=== PATIENT | female | born 1955 | race Caucasian/White ===

== ENCOUNTER 2024-02-13 22:55 | Inpatient (IN) | payer MEDICARE, SELFPAY ==
[2024-02-13 14:27] VITALS: BP 124/88
--- NOTE | 2024-02-13 14:37 | ED.GENMED ---
History of Present Illness
General
Chief Complaint: Bowel Problem
Source: ambulance crew
Time Seen by Provider: 02/13/24 14:29
Travel History
Have you had any contact with someone who has COVID-19?: Unable to Answer
Do you have any symptoms of coronavirus? Fever > 100 degrees, chills, cough, shortness of breath, sore throat, loss of taste or smell, muscle aches, or headache?: Unable to Answer
History of Present Illness
History of Present Illness:
68-year-old female presenting to the ER, past medical history of dementia, for evaluation of reported increased lethargy over the last few days. Family noted some larger thicker bowel movements and thought patient should come to the emergency
department to be evaluated for possible infectious etiology. Patient is unable to provide any history secondary to her dementia. No family is present in the ER at time of arrival in my examination.
Past History
Past History
ED Past Medical History: Hypercholesterolemia, Hypothyroidism, Psychiatric (depression) and Other (lewy body dementia, overactive bladder)
ED Past Surgical History: None
Social History
Tobacco: Non-smoker
Alcohol: None
Drug: None
Personal:
Living: with family
Review of Systems
Review of Systems
All Other Systems: ROS reviewed and negative except as documented in HPI and ROS
Phy Exam
Physical Exam
Physical Exam:
GENERAL: Obtunded but will open eyes to name and withdrawal from pain but otherwise is noncommunicative
EYE: conjunctiva clear
NECK: Supple, no significant adenopathy.
ENT: o/p clr, mmm.
CARDIAC: Regular rate and rhythm
LUNGS: Clear breath sounds bilaterally, no acute respiratory distress, no wheezes/rales/rhonchi
Abdomen: Soft, does not grimace with palpation
NEUROLOGICAL: Unable to assess
SKIN: Warm and dry, skin intact.
MUSCULOSKELETAL: well perfused.
PSYCH: Unable to assess
Scores
Heart Failure Risk
Heart Failure Risk Score: Not Applicable
Heart Score for Chest Pain Patients
STEMI patient?: Not applicable
Withdrawal Assessment of Alcohol
Withdrawal Assessment Completed?: Not applicable
Course
Orders/Labs/Results
Orders:
Orders
02/13/24 14:32
Complete Blood Count/With Diff Urgent
Comprehensive Metabolic Panel Urgent
Lipase Urgent
02/13/24 15:20
CT Abd/pelvis W Iv Cont Urgent
Comment:
Reason For Exam: hx bowel obstruction, diarrhea, leukocytosis
02/13/24 15:47
COVID-19 Antigen Urgent
Source: Nasal Swab
Urinalysis Reflex To Culture Urgent
Date Specimen was Collected: 02/13/24
Time Specimen was Collected: 14:51
Urine Microscopic Reflex Cult Urgent
Urine Culture Urgent
KAIT Source: U
Specimen Description:
Date Specimen was Collected: 02/13/24
Time Specimen was Collected: 14:51
02/13/24 17:13
0.9% Sodium Chloride 1000 ml [Nss] 1,000 ml IV BOLUS
02/13/24 18:14
CR Chest Portable - 1 View Urgent
Comment:
Reason For Exam: hypoxia, lethargy
Reason Study Needs to be Portable: Unable to Transport
02/13/24 18:15
Blood Culture Q30M
KAIT Source: Blood/Venous
Specimen Description:
02/13/24 18:18
Azithromycin 500 mg/250 ml [Zithromax Infusion] 500 mg in 250 ml IV NOW
CefTRIAXone [Rocephin] 1,000 mg IV NOW STA
02/13/24 18:45
Blood Culture Q30M
KAIT Source: Blood/Venous
Specimen Description:
Abnormal Lab Results
02/13/24 02/13/24
14:32 15:47
WBC 15.0 H 10^3/uL
(4.8-10.8)
MCHC 31.3 L g/dL
(33.0-37.0)
RDW 16.1 H %
(11.5-14.5)
MPV 10.6 H fL
(7.4-10.4)
Abs Immat Gran (auto) 0.1 H 10^3/uL
(0-0.05)
Absolute Neuts (auto) 10.7 H 10^3/uL
(1.4-6.5)
Absolute Monos (auto) 1.0 H 10^3/uL
(0.1-0.6)
Creatinine 0.5 L mg/dL
(0.6-1.0)
AST 101 H U/L
(14-36)
ALT 98 H U/L
(0-35)
Urine Ketones Trace A
(Negative)
Leukocyte Esterase Rfl 1+ A
(Negative)
Urine WBC (Reflex) 16-20 A /HPF
(0-5)
Urine Bacteria (Reflex) Moderate A
(Negative)
02/13/24 14:32
02/13/24 14:32
Vital Signs
Initial and Last Documented VS:
Initial Vital Signs
Temp Pulse Resp BP Pulse Ox
98.2 F 86 16 124/88 98
02/13/24 14:27 02/13/24 14:27 02/13/24 14:27 02/13/24 14:27 02/13/24 14:27
Last Documented Vital Signs
Temp Pulse Resp BP Pulse Ox
98.2 F 86 16 124/88 98
02/13/24 14:27 02/13/24 14:27 02/13/24 14:27 02/13/24 14:27 02/13/24 14:27
MDM/Problems Addressed
Differential Diagnosis Includes:
Progressive dementia, urinary tract infection, pneumonia, other infectious etiology
MDM/Problems Addressed:
68-year-old female with past medical history dementia presenting the emergency department for reported change in mental status. Family is currently not present in the emergency department so history was very limited and only per EMS. At this time
it is unclear what patient's baseline is. She does not have any significant visits to this emergency department previously. In the meantime we will check labs and urine. Reassessment following. Will contact patient's family to get further
history.
*Radiology
Radiology exam reviewed: radiology read reviewed
*Pulse Oximetry
Patient hypoxic: yes
*Critical Care Note
Total Time (30-74mins, 75-104mins- exclusive of procedures): Not Applicable
Comment
Comment:
2:50 PM: Patient's family is now at the bedside. They note that since this morning patient has been more lethargic. Normally she is fully bedridden, noncommunicative and needs 24-hour care. They do note that patient has been sleeping much more
than normal today. They also note that over the last 48 hours or so patient's bowel movements have been a little bit thicker and larger but today she has had diarrhea. Primary care recommended patient to come to the ER for further evaluation.
Family was updated on plan with labs being ordered as well as plan for likely imaging. They are in agreement.
3:19 PM: Patient's labs reveal a leukocytosis of 15,000 but no leftward shift. She appears to also have chronically elevated liver function tests. COVID test was added. Will add on CT of the abdomen and pelvis.
Patient Management
Discussion with other providers: Hospitalist
Escalation/DeEscalation of care consider admission/obs:
What is this for while awaiting patient's CT her oxygen saturations started to drop to 90% on room air so was placed on 2 L via nasal cannula. Patient's is also now noting me patient has had a slight cough over the last few days.
CT scan shows moderate fecal material in the rectum concerning for fecal impaction. I did perform rectal exam with systems lead, ED PIPO Sanchez, which revealed there was stool within the rectum however this was soft and there was no impacted stool.
Patient also has mild bibasilar consolidations. Will treat for pneumonia given her cough, leukocytosis, decreased mentation. Rocephin and Zithromax ordered for community-acquired pneumonia based off of risk factors and antibiogram. Hospitalist
team is aware and accepts for continued evaluation and treatment.
ED Attending Note
-
Portions of this chart may have been created with voice recognition software.� Occasional wrong word or��sound alike� substitutions may have occurred due to the inherent limitations of voice recognition software.
Discharge Plan
Departure
Patient Disposition: Admit
Date of Disposition: 02/13/24
Time of Disposition: 18:40
Presentation/result/management discussed w/ accepting MD/DO: Hospitalist
Discharge Problem:
Altered mental status, Pneumonia, Constipation
Prescriptions:
No Action
quetiapine 25 mg tablet
25 mg PO BID
donepezil 10 mg tablet
10 mg PO QPM
sertraline 100 mg tablet
200 mg PO DAILY
clopidogrel 75 mg tablet
75 mg PO DAILY
omeprazole 40 mg capsule,delayed release(DR/EC)
40 mg PO DAILY
simvastatin 40 mg tablet
40 mg PO QPM
levothyroxine 50 mcg tablet
50 mcg PO QPM
memantine 10 mg tablet
10 mg PO BID
quetiapine 50 mg tablet
50 mg PO QPM
levocetirizine 5 mg tablet
5 mg PO DAILY
zinc acetate 50 mg (zinc) Capsule
50 mg PO BID
ascorbic acid (vitamin C) [Vitamin C] 500 mg Tablet
500 mg PO BID
fluticasone propionate 50 mcg/actuation spray,suspension
1 spray INTRANASAL QPM PRN (Reason: nasal congestion)
cholecalciferol (vitamin D3) [Vitamin D3] 25 mcg (1,000 unit) Tablet
25 mcg PO BID
Women's Multivitamin Collagen 200 mcg- 25 mg Tablet,Chewable
1 tab PO BID
biotin 2,500 mcg Tablet,Chewable
2,500 mcg PO BID
Probiotic
2.5 mg PO DAILY
coconut oil
4,000 mcg PO BID
Referrals:
Bar Senior, [Family Provider] -
Interventions
Interventions:
*Risk Screen - Suicide Last Done: 02/13/24 14:22
*General Assessment Last Done: 02/13/24 14:22
*Neglect/Abuse Screening Last Done: 02/13/24 14:22
ED- Fall Risk Assessment Last Done: 02/13/24 15:51
*ED COVID-19 Vaccine History Last Done: 02/13/24 14:22
JC-Cihwaq-Dzdcumzxcf Assessment Last Done: 02/13/24 14:22
Discharge Date and Time
Print Language: JORDANIAN
[2024-02-13 14:44] LABS: % Basophils 0.5 % (0-2); % Eosinophils 0.7 % (0-6); % Immature Granulocytes 0.4 % (0-0.5); % Lymphocytes 20.7 % (20.5-51.1); % Monocytes 6.8 % (1.7-9.3); % Neutrophils 70.9 % (42.2-75.2); Absolute Basophils 0.1 10^3/uL (0-0.2); Absolute Eosinophils 0.1 10^3/uL (0-0.7); Absolute Immature Granulocytes 0.1 10^3/uL (0-0.05); Absolute Lymphocytes 3.1 10^3/uL (1.2-3.4); Absolute Neutrophils 10.7 10^3/uL (1.4-6.5); Hemoglobin 14.4 g/dL (12.0-16.0); Mean Corp Hgb Conc. 31.3 g/dL (33.0-37.0); Mean Corpuscular Hgb 27.8 pg (27.0-31.0); Mean Corpuscular Volume 88.8 fL (81.0-99.0); Mean Platelet Volume 10.6 fL (7.4-10.4); Nucleated Red Blood Cells % 0 %; Platelet Count 228 10^3/uL (130-400); Red Blood Cell Count 5.18 10^6/uL (4.20-5.40); Red Cell Dist. Width 16.1 % (11.5-14.5)
[2024-02-13 14:56] LABS: ALT (SGPT) 98 U/L (0-35); AST (SGOT) 101 U/L (14-36); Albumin 4.2 g/dl (3.5-5.0); Alkaline Phosphatase 109 U/L (38-126); Blood Urea Nitrogen 14 mg/dl (7-17); Carbon Dioxide 24 mmol/L (22-30); Chloride 104 mmol/L (98-107); Glucose 93 mg/dl (70-99); Lipase 108 U/L (23-300); Potassium 4.2 mmol/L (3.5-5.1); Sodium 136 mmol/L (135-145); Total Bilirubin 0.5 mg/dl (0.2-1.3); Total Protein 7.4 g/dl (6.3-8.2); eGFR > 60.00
[2024-02-13 16:36] LABS: Urine Albumin Negative (Neg - Trace); Urine Bilirubin Negative (Negative); Urine Character Clear (Clear); Urine Color Yellow; Urine Glucose Negative (Negative); Urine Ketone Trace (Negative); Urine Leukocyte 1+ (Negative); Urine Nitrite Negative (Negative); Urine Occult Blood Negative (Negative); Urine Urobilinogen Negative (Neg - 1+)
[2024-02-13 16:44] LABS: COVID-19 Antigen Negative (Negative)
[2024-02-13 17:15] LABS: Urine White Cell 16-20 /HPF (0-5)
[2024-02-13 17:16] LABS: Urine Bacteria Moderate (Negative)
[2024-02-13] MEDS: NSS 1000 IV (18:02)
[2024-02-13 19:48] VITALS: BP 126/71
[2024-02-13] MEDS: ROCEPHIN 1000 MG IV (19:49)
[2024-02-13] MEDS: ZITHROMAX INFUSION 250 IV (19:55)
[2024-02-13 21:00] VITALS: BP 135/87
[2024-02-13 22:00] VITALS: BP 124/75
[2024-02-13 23:00] VITALS: BP 99/69
--- NOTE | 2024-02-13 23:02 | HPS.HSE ---
Family Physician
-
Family Physician: Bar Senior
Chief Complaint
-
Worsening Mentation, SPO2 90s, Bowel habit changes (constipation followed by diarrhea)
History of Present Illness
68yo F with PMH Advanced Lewy Body Dementia (nonverbal, bedbound, 24h home care), CAD on Plavix, HLD, Hypothyroidism, Anxiety/Depression presents to ER with worsening mentation and SPO2 in the 90s. at bedside aiding in HPI as pt is a poor
historian. He notes larger concerns for her bowel habit changes. Over the last few weeks she has had very large stools with associated constipation increasing in frequency. He had her on high fiber diet and was giving her prunes but did not not any
significant improvement. Over the last 2 days however he reports several episodes of loose-watery non bloody stools. Does not suspect her to be in pain but she is not great at conveying pain, 'she grimaces for everything.' +decreased PO intake.
+coughing over the last few weeks. Denies sick contacts, fevers, nausea or vomitting. ROS otherwise limited.
ER course: Pt presents with V.S.S (no episodes of hypoxia despite EMS notes). WBC 15.0K. Basic labs otherwise wnl. CXR read as WNL.
CT A/P:
IMPRESSION: Moderate fecal material in the rectum concerning for fecal impaction.
Tiny bilateral pleural effusions.
Mild bibasilar consolidation.
Large hiatal hernia.
Moderate age indeterminate T12 compression fracture
S/P 1LNS, Rocephin/Azithromycin in ER.
Medical History
Past Medical History
Past Medical History: Reports Other (Hypercholesterolemia, Hypothyroidism, Psychiatric (depression) and Other (lewy body dementia, overactive bladder))
Past Surgical History: Reports Other (No pertinent surgical history)
Social History
Unable to obtain full social history at this time due to: Dementia
Tobacco: Non-smoker
Alcohol: None
Drug: None
Personal:
Living: With Family
Family History
Family History: Not pertinent
Allergies / Home Medications
Allergies reflects when Allergies were last updated in [facility].
Home Medications with original date entered in [facility]
Allergy/Medication List:
Allergies
Allergy/AdvReac Type Severity Reaction Status Date / Time
haloperidol Allergy Unknown Unknown Verified 02/13/24 14:29
chlorpromazine Allergy Unknown Verified 02/13/24 14:29
[From Thorazine]
risperidone [From Risperdal] Allergy Unknown Verified 02/13/24 14:29
anticholenergics Allergy Unknown Uncoded 02/13/24 14:29
dopamine agonists Allergy Unknown Uncoded 02/13/24 14:29
Home Medications
Probiotic 2.5 mg PO DAILY 02/13/24
ascorbic acid (vitamin C) 500 mg tablet (Vitamin C) 500 mg PO BID 02/13/24
biotin 2,500 mcg chewable tablet 2,500 mcg PO BID 02/13/24
cholecalciferol (vitamin D3) 25 mcg (1,000 unit) tablet (Vitamin D3) 25 mcg PO BID 02/13/24
clopidogrel 75 mg tablet 75 mg PO DAILY 02/13/24
coconut oil 4,000 mcg PO BID 02/13/24
donepezil 10 mg tablet 10 mg PO QPM 02/13/24
fluticasone propionate 50 mcg/actuation nasal spray,suspension 1 spray intranasal QPM PRN nasal congestion 02/13/24
levocetirizine 5 mg tablet 5 mg PO DAILY 02/13/24
levothyroxine 50 mcg tablet 50 mcg PO QPM 02/13/24
memantine 10 mg tablet 10 mg PO BID 02/13/24
zcbercqy-alm-dnzxe acid 200 mcg-collagen, hydrolyzed 25 mg chew tablet (Women's Multivitamin with Collagen) 1 tab PO BID 02/13/24
omeprazole 40 mg capsule,delayed release 40 mg PO DAILY 02/13/24
quetiapine 25 mg tablet 25 mg PO BID 02/13/24
quetiapine 50 mg tablet 50 mg PO QPM 02/13/24
sertraline 100 mg tablet 200 mg PO DAILY 02/13/24
simvastatin 40 mg tablet 40 mg PO QPM 02/13/24
zinc acetate 50 mg (zinc) capsule 50 mg PO BID 02/13/24
Review of Systems
-
A 12 point ROS was completed and negative except as noted: Yes
Physical Exam
Vital Signs
Vital Signs
Temp Pulse Resp BP Pulse Ox
98.2 F 86 16 135/87 94
02/13/24 14:27 02/13/24 14:27 02/13/24 14:27 02/13/24 21:00 02/13/24 22:00
Physical Exam
General: No Apparent Distress, Poor Appetite and Appears Chronically Ill
HEENT: NormoCephalic, Atraumatic, PERRLA and Other (Dry MM, No exudates on oropharynx)
Respiratory: Other (Diminished breath sounds b/l. Poor Inspiratory Effort. )
Cardiac: S1/S2 and Regular Rhythm; No Murmur or Rub
GI: Soft, Non Tender, Non Distended and Normal Bowel Sounds; No Organomegaly
Rectal: Deferred by Provider
Musculoskeletal: No Clubbing, No Cyanosis and No Edema
Skin: No Rash
Neuro: Awake and Other (AOx0, baseline. Tremulous, Intermittently agitated/startled (baseline). MSK testing limited. Sensation grossly intact. )
Hematologic/Lymphatic: No Lymphadenopathy
Psych: Agitated and Anxious
Laboratory Results
-
02/13/24 14:32
02/13/24 14:32
Laboratory Results
Total Bilirubin 0.5 mg/dl (0.2-1.3) 02/13/24 14:32
AST 101 U/L (14-36) H 02/13/24 14:32
ALT 98 U/L (0-35) H 04/11/24 14:32
Alkaline Phosphatase 109 U/L (38-126) 02/13/24 14:32
Lipase 108 U/L (23-300) 02/13/24 14:32
Data Reviewed
-
CT Scan: Image Personally Visualized and interpreted
Medical Tests (Nuc Med, Echo, EKG etc): Image Personally Visualized and interpreted
Lab Data: Labs Reviewed by me
Old Records: Reviewed
Impression/Plan
-
Leukocytosis
- WBC 15.0k on admission. reporting cough for weeks as well as change in bowel habits
- Initial CXR read as no acute findings. Mild Bibasilar consolidations on CT a/p
- Obtain Sputum culture, stool studies/cdiff
- Change rocephin/azithromycin to rocephin/flagyl
- Concern for aspiration - obtain speech evaluation
Bowel Habit Change
- reports weeks of severe constipation followed by loose watery, nonbloody stools x 2 days
- CT a/p: Moderate fecal material in the rectum concerning for fecal impaction, Large hiatal hernia.
- Disimpacted in ER. Will send stool cultures/cdiff for completeness
- Consider infectious coliits vs sterocoral colitis.
- Will cover with rocephin/flagyl and trend leukocytosis/abdominal exams
- Consider GI consultation. Last [facility]bro 7-8 years ago which reports was WNL
Incidental Findings
- Tiny bilateral pleural effusions.
- Large hiatal hernia.
- Moderate age indeterminate T12 compression fracture - No acute tenderness. Consider spine surgery eval as needed
Lewy Body Dementia / Anxiety / Depression
- Stable on home sertraline, seroquel, memantine
- Outpatient follow up wtih Dr. Galan at [facility]
CAD / HLD - Stable on home plavix/statin.
Code Status: DNR/DNI, is medical POA
DVT PPx: Lovenox
Diet: Minced, regular. Speech evaluation and Nutrition evalution.
[2024-02-14 01:02] VITALS: BP 141/65
[2024-02-14] MEDS: NSS 1000 IV ×2 (01:09→14:48)
[2024-02-14] MEDS: ARICEPT 10 MG PO (01:28)
[2024-02-14] MEDS: LIPITOR 20 MG PO (01:28)
[2024-02-14] MEDS: SYNTHROID 50 MCG PO (01:29)
[2024-02-14] MEDS: VITAMIN C 500 MG PO (01:29)
[2024-02-14] MEDS: SEROQUEL 50 MG PO (01:29)
[2024-02-14] MEDS: VITAMIN D3 (cholecalciferol) 25 MCG PO (01:29)
[2024-02-14] MEDS: NAMENDA 10 MG PO (01:29)
[2024-02-14] MEDS: FLAGYL 500 MG 100 IV ×3 (01:40→16:50)
[2024-02-14 06:00] VITALS: BMI 25.4
[2024-02-14 06:04] LABS: % Basophils 0.4 % (0-2); % Eosinophils 1.1 % (0-6); % Immature Granulocytes 0.5 % (0-0.5); % Lymphocytes 20.5 % (20.5-51.1); % Monocytes 6.4 % (1.7-9.3); % Neutrophils 71.1 % (42.2-75.2); Absolute Basophils 0.1 10^3/uL (0-0.2); Absolute Eosinophils 0.1 10^3/uL (0-0.7); Absolute Immature Granulocytes 0.1 10^3/uL (0-0.05); Absolute Lymphocytes 2.4 10^3/uL (1.2-3.4); Absolute Monocytes 0.8 10^3/uL (0.1-0.6); Absolute Neutrophils 8.4 10^3/uL (1.4-6.5); Hematocrit 38.9 % (37.0-47.0); Hemoglobin 12.5 g/dL (12.0-16.0); Mean Corp Hgb Conc. 32.1 g/dL (33.0-37.0); Mean Corpuscular Hgb 28.3 pg (27.0-31.0); Mean Platelet Volume 10.5 fL (7.4-10.4); Nucleated Red Blood Cells % 0 %; Platelet Count 193 10^3/uL (130-400); Red Blood Cell Count 4.42 10^6/uL (4.20-5.40); Red Cell Dist. Width 16.1 % (11.5-14.5); White Blood Cell Count 11.8 10^3/uL (4.8-10.8)
[2024-02-14 06:38] LABS: Blood Urea Nitrogen 10 mg/dl (7-17); Calcium 9.8 mg/dl (8.4-10.2); Carbon Dioxide 23 mmol/L (22-30); Chloride 104 mmol/L (98-107); Estimated Creatinine Clearance 76 ml/min; Glucose 83 mg/dl (70-99); Magnesium 1.7 mg/dl (1.6-2.3); Potassium 3.8 mmol/L (3.5-5.1); Sodium 137 mmol/L (135-145); eGFR > 60.00
[2024-02-14 07:35] VITALS: BP 121/69
[2024-02-14] MEDS: NAMENDA PO ×2 (08:50→21:28)
[2024-02-14] MEDS: ZINC SULFATE PO ×2 (08:51→21:30)
[2024-02-14] MEDS: VITAMIN C PO ×2 (08:51→21:28)
[2024-02-14] MEDS: VITAMIN D3 (cholecalciferol) PO ×2 (08:51→21:29)
--- NOTE | 2024-02-14 09:29 | W.PN.HOSP.TC ---
Today's Communication/Plan
-
Continue antibiotics
Daily swallowing evaluation
NPO for now
Appreciate GI recommendations for bowel movements
Assessment / Plan
Assessment / Plan
68yo F with Lewy Body Dementia (AAOx0, bedbound baseline) presented with constipation alternating to diarrhea and cough. Possible Pneumonia. CT a/p with constipation s/p disimpaction. WBC 15.0K. Rocpehin/Azithro changed to rocephin flagyl. Follow up
sputum, stool cultures/cdiff.
CT A/P (as per radiologist's report):
IMPRESSION: Moderate fecal material in the rectum concerning for fecal impaction.
Tiny bilateral pleural effusions.
Mild bibasilar consolidation.
Large hiatal hernia.
Moderate age indeterminate T12 compression fracture
Physical Exam
General: No Apparent Distress, Poor Appetite and Appears Chronically Ill
HEENT: Normocephalic, Atraumatic, (Dry MM, No exudates on oropharynx)
Respiratory: Other (Diminished breath sounds b/l. Poor Inspiratory Effort. )
Cardiac: S1/S2 and Regular Rhythm
GI: Soft, Non Tender, Non Distended and Normal Bowel Sounds
Musculoskeletal: No Cyanosis and No Edema
Skin: Wardm. Dry.
Neuro: Awake and Other (AOx0, mostly nonverbal, baseline. Intermittently agitated/startled (baseline). MSK testing limited.)
Psych: Calm
Leukocytosis - IMPROVED
- WBC 15.0k on admission. reporting cough for weeks as well as change in bowel habits
- Initial CXR read as no acute findings. Mild Bibasilar consolidations on CT a/p
- Obtain Sputum culture, stool studies/cdiff
- Initially was on rocephin/azithromycin but then changed to rocephin/flagyl
- Urine growing E. coli -- await sensitivities
- Concern for aspiration - obtain speech evaluation -- NPO recommended, including no oral medications
Bowel Habit Change
- reports weeks of severe constipation followed by loose watery, nonbloody stools x 2 days -- 'runoff stools'
- CT a/p: Moderate fecal material in the rectum concerning for fecal impaction, Large hiatal hernia.
- Disimpacted in ER. Follow stool studies
- Consider infectious coliits vs sterocoral colitis vs.
- Will cover with rocephin/flagyl (was on rocephin and zithromax) and trend leukocytosis/abdominal exams
- GI consulted, recommendations appreciated
Incidental Findings
- Tiny bilateral pleural effusions.
- Large hiatal hernia.
- Moderate age indeterminate T12 compression fracture - No acute tenderness. Consider spine surgery eval as needed
Lewy Body Dementia / Anxiety / Depression
- Stable on home sertraline, seroquel, memantine
- Outpatient follow up wtih Dr. Galan at [facility]
CAD / HLD - Stable on home plavix/statin.
Code Status: DNR/DNI, is medical POA
DVT PPx: Lovenox
Diet: NPO w/ non-oral means of meds (as per speech eval)
On February 14, 2024 I spoke extensively with patient's , all questions and concerns were answered.
Total time spent today on chart review, seeing and examining the patient, speaking with patient's and consulting gastroenterology, and on documentation was 65 minutes.
Anticipated Discharge: > 48 hours
Subjective/Interval History
-
Date of Service: February 14, 2024
Patient was seen and examined. She was at times awake, but did not respond to questions. Her was present in the room.
Objective Data
-
Labs:
Laboratory Results
02/14/24
05:25
WBC 11.8 H
Hgb 12.5
Hct 38.9
Plt Count 193
Sodium 137
Potassium 3.8
Chloride 104
Carbon Dioxide 23
BUN 10
Creatinine 0.6
Glucose 83
Calcium 9.8
Vital Signs:
Vital Signs
Temp Pulse Resp BP Pulse Ox
98.7 F 71 16 121/69 96
02/14/24 07:35 02/14/24 07:35 02/14/24 07:35 02/14/24 07:35 02/14/24 07:35
I&O
02/13/24 02/14/24 02/15/24
06:59 06:59 06:59
Intake Total 580 / 580
Balance 580 / 580
--- NOTE | 2024-02-14 09:41 | PTCARENOTE ---
Pt. failed speech eval. Pt. drowsy but arousable to tactile stimuli. PO morning medications not administered. MD made aware. Will reconsult speech when patient more arousable.
--- NOTE | 2024-02-14 10:09 | PTOTSP ---
Dysphagia Evaluation
Patient had absent pre-feeding skills at time of this evaluation (i.e., no labial seal, no lingual movement, no reflexive swallow with sparing PO). She is at acute on chronic risk for dysphagia given acute illness with lethargy and baseline history
of advanced Lewy Body Dementia with a large hiatal hernia.
Recommend:
1. Temporary NPO
2. Medications via non-oral means
3. Aspiration Risk Hydration Protocol is inappropriate at this time due to no reflexive swallows observed.
4. Dysphagia therapy at the acute care level for continued assessment of pre-feeding skills and swallowing function as appropriate.
--- NOTE | 2024-02-14 10:58 | CON.GI ---
Addendum entered and electronically signed by Harmony Walker Do, MD 02/14/24 16:44:
I saw and examined the patient.
The BULB BRANDER's note was reviewed and I agree with the note.
Comment: Lilia is a 68yo W bed bound with h/o dementia who was brought to ED for change in mental status and fecal impaction seen on CT scan. She was chronically constipated in past and saw GI at [facility]. Was recommended miralax but stopped.
Now constipated with overflow diarrhea. Also refusing to eat. Exam VSS posturing, non verbal. Obese abdomen. NTTP. Labs reviewed without anemia
Impression
- Fecal impaction in setting of dementia and bedbound
- CAD
- HL
- Hypothyroidism
- Anxiety/depression
- GERD
Recommendation
- NPO given altered mental status
- S/p manual disimpaction and MOM enema
- Ducolax supp x1 now and again at 6pm
- Monitor stool output
- C/w PPI IV
- CMP and TSH
updated bedside
Addendum entered and electronically signed by Asha Puentes NP 02/14/24 15:02:
With + urine culture, likely urinary source of infection +/- pneumonia. Flagyl not likely necessary given non-severe fecal burden with normal bowel appearance on CT.
Addendum entered and electronically signed by Asha Puentes NP 02/14/24 12:37:
C. difficile test canceled as the patient has fecal impaction and is very unlikely to have C. difficile.
Original Note:
Consultation
-
Date/Time Consultation Requested: 02/14/24 @ 09:33
Date/Time Consultation Performed: 02/14/24 @ 11:00
Requesting Provider: Dr. Tariq
Performing Provider: GERARD Hanson; Dr. Harmony Bourgeois
Reason for Consultation: fecal impaction
Medical History
Chief Complaint / HPI
Chief Complaint: low pulse ox, constipation, altered mental status
History of Present Illness:
The patient is a 68-year-old female with a past medical history significant for advanced dementia secondary to Lewy bodies, CAD on Plavix, hyperlipidemia, hypothyroidism, anxiety/depression, GERD, who presented to the emergency room secondary to
altered mental status, low oxygen, and change of bowel habits. We are being asked to evaluate for fecal impaction. The patient is nonverbal at baseline therefore the was able to provide information regarding the HPI. He notes that his
had been increasingly lethargic over the last week, and has not been eating as well. Also noted a mild cough upon eating at times. She is normally awake and alert although mostly nonverbal secondary to advanced dementia. He reports that her
bowel movements have been altered as of recently as well. He notes that about 3 months ago she did have an episode of constipation which did improve with MiraLAX. More recently she did have a very large stool ball, which was followed by episodes
of diarrhea. He notes that he has managed her constipation primarily through her diet with high-fiber. This typically keeps her regular. He denies any obvious melena or hematochezia in the stool. She does not appear in any obvious pain. She has
had no vomiting or other concerning symptoms. Her last colonoscopy was done about 4 years ago out of [facility] in which he denies any significant findings. She is on Plavix for history of CAD. On admission found to have an
elevated white blood cell count of 15,000 along with a mildly elevated AST and ALT. She underwent a CT of the abdomen and pelvis with IV and oral contrast which showed moderate fecal material in the rectum concerning for fecal impaction along with
tiny bilateral pleural effusions, mild bibasilar consolidation, large hiatal hernia, and a moderate age-indeterminate T12 compression fracture. Rectal exam was performed in the emergency room by the ER attending which did reveal stool within the
rectum however it was soft and there was no impacted stool. Urinalysis showing increased white blood cells, with urine culture pending. She was placed on antibiotics with Rocephin and azithromycin for possible community-acquired pneumonia.
Metronidazole was also added for GI coverage as well. She was admitted for further evaluation and monitoring. We were asked to evaluate for the CT findings concerning fecal impaction.
Past Medical History
Past Medical History: CAD, GERD, Hypercholesterolemia, Hypothyroidism, Psychiatric (Anxiety/depression) and Other (Advanced dementia secondary to Lewy body, overactive bladder)
Past Surgical History: Other (No significant surgical history mentioned)
Social History
Tobacco: Non-Smoker
Alcohol: None
Drug: None
Personal:
Living: With Family
Family History
Family History: Reviewed & Not Pertinent
Allergies / Home Medications
Allergy/AdvReac Type Severity Reaction Status Date / Time
haloperidol Allergy Unknown Unknown Verified 02/13/24 14:29
chlorpromazine Allergy Unknown Verified 02/13/24 14:29
[From Thorazine]
risperidone [From Risperdal] Allergy Unknown Verified 02/13/24 14:29
anticholenergics Allergy Unknown Uncoded 02/13/24 14:29
dopamine agonists Allergy Unknown Uncoded 02/13/24 14:29
�Medication �Instructions �Recorded
Probiotic 2.5 mg PO DAILY probiotic 02/13/24
ascorbic acid (vitamin C) 500 mg 500 mg PO BID Supplement 02/13/24
tablet (Vitamin C)
biotin 2,500 mcg chewable tablet 2,500 mcg PO BID Supplement 02/13/24
cholecalciferol (vitamin D3) 25 25 mcg PO BID Supplement 02/13/24
mcg (1,000 unit) tablet (Vitamin
D3)
clopidogrel 75 mg tablet 75 mg PO DAILY Blood Clot 02/13/24
Prevention/Tx
coconut oil 4,000 mcg PO BID Supplement 02/13/24
donepezil 10 mg tablet 10 mg PO QPM dementia 02/13/24
fluticasone propionate 50 1 spray intranasal QPM PRN nasal 02/13/24
mcg/actuation nasal congestion
spray,suspension
levocetirizine 5 mg tablet 5 mg PO DAILY Allergies 02/13/24
levothyroxine 50 mcg tablet 50 mcg PO QPM hypothyroidism 02/13/24
memantine 10 mg tablet 10 mg PO BID dementia 02/13/24
gavaytux-ypd-ksujd acid 200 1 tab PO BID Supplement 02/13/24
mcg-collagen, hydrolyzed 25 mg
chew tablet (Women's Multivitamin
with Collagen)
omeprazole 40 mg capsule,delayed 40 mg PO DAILY Gastrointestinal 02/13/24
release Issue
quetiapine 25 mg tablet 25 mg PO BID 02/13/24
depression/anxiety/Lewy Body
dementia
quetiapine 50 mg tablet 50 mg PO QPM 02/13/24
depression/anxiety/Lewy Body
dementia
sertraline 100 mg tablet 200 mg PO DAILY depression/anxiety 02/13/24
simvastatin 40 mg tablet 40 mg PO QPM High Cholesterol 02/13/24
zinc acetate 50 mg (zinc) capsule 50 mg PO BID Supplement 02/13/24
Review of Systems
-
Unable to obtain full review of systems at this time due to: Patient Non Verbal
History Source: Family
Abdomen/GI: Reports Constipated
Vital Signs
Temp Pulse Resp BP Pulse Ox
98.7 F 71 16 121/69 96
02/14/24 07:35 02/14/24 07:35 02/14/24 07:35 02/14/24 07:35 02/14/24 07:35
Physical Exam
Exam
General: Other (Chronically ill-appearing female in no acute distress)
HEENT: Normocephalic, Anicteric and Atraumatic
Respiratory: Clear
Cardiac: S1/S2 and Regular Rhythm
GI: Soft, Non Tender, Non Distended and Normal Bowel Sounds
Rectal: Brown and Other (Moderate amount of soft stool removed from the rectum)
Musculoskeletal: No Edema
Skin: Warm and Dry
Neuro: Awake, Alert and Other (Nonverbal, contracted)
Psych: Calm
Results
WBC 11.8 10^3/uL (4.8-10.8) H 02/14/24 05:25
Hgb 12.5 g/dL (12.0-16.0) 02/14/24 05:25
Hct 38.9 % (37.0-47.0) 02/14/24 05:25
MCV 88.0 fL (81.0-99.0) 02/14/24 05:25
Plt Count 193 10^3/uL (130-400) 02/14/24 05:25
Absolute Neuts (auto) 8.4 10^3/uL (1.4-6.5) H 02/14/24 05:25
Sodium 137 mmol/L (135-145) 02/14/24 05:25
Potassium 3.8 mmol/L (3.5-5.1) 02/14/24 05:25
Chloride 104 mmol/L (98-107) 02/14/24 05:25
Carbon Dioxide 23 mmol/L (22-30) 02/14/24 05:25
BUN 10 mg/dl (7-17) 02/14/24 05:25
Creatinine 0.6 mg/dL (0.6-1.0) 02/14/24 05:25
Calcium 9.8 mg/dl (8.4-10.2) 02/14/24 05:25
Total Bilirubin 0.5 mg/dl (0.2-1.3) 02/13/24 14:32
AST 101 U/L (14-36) H 02/13/24 14:32
ALT 98 U/L (0-35) H 02/13/24 14:32
Alkaline Phosphatase 109 U/L (38-126) 02/13/24 14:32
Lipase 108 U/L (23-300) 02/13/24 14:32
Diagnostic Image Results:
02/13/2024 CT A/P w/Iv and oral contrast: 'IMPRESSION: Moderate fecal material in the rectum concerning for fecal impaction. Tiny bilateral pleural effusions. Mild bibasilar consolidation. Large hiatal hernia. Moderate age indeterminate T12
compression fracture.'
Prior GI Procedures:
EGD: none on file
Colonoscopy: per last about 4 years ago no polyps
Assessment / Plan
-
The patient is a 68-year-old female with a past medical history significant for advanced dementia secondary to Lewy bodies, CAD on Plavix, hyperlipidemia, hypothyroidism, anxiety/depression, GERD, who presented to the emergency room secondary to
altered mental status, low oxygen, and change of bowel habits. We are being asked to evaluate for fecal impaction. Found to have fecal impaction on CT imaging, with recent change of bowel habits per family. Also with altered mental status with
decreased p.o. intake, with baseline advanced dementia with Lewy bodies. Not on regular bowel regimen daily, previously managed with high-fiber diet. Last colonoscopy about 4 years ago which was unrevealing per her . She is on Plavix for
history of CAD.
Problem list:
-Altered bowel habits with fecal impaction on CT scan
-Altered mental status
-History of Lewy body dementia
-Leukocytosis
-Abnormal CT imaging concerning for possible pneumonia
-Abnormal UA
-Elevated transaminases
Other pertinent medical history:
-CAD on Plavix
-Hypertension
-Hyperlipidemia
-Hypothyroidism
-Anxiety/depression
-GERD
Recommendations:
-Etiology of constipation possibly multifactorial with immobility versus infection with decreased p.o. intake versus other.
---Rectal exam revealed soft stool in the rectum. She does not appear in any distress and does not have any tenderness on exam.
-Will give one-time milk and molasses enema. If insufficient we will give a Dulcolax suppository x 1 dose later today.
-When taking p.o. would advise on a daily bowel regimen with MiraLAX 1 capful daily. Her stool is already soft therefore I do not feel she will need a daily stool softener.
-Will check TSH with known thyroid disease.
-Continue high-fiber diet
-Ensure adequate hydration. The patient does require being fed and does have a rolling attendant at home per her who is attentive to her needs.
-She should follow-up outpatient with her GI doctor for discussion on repeat colonoscopy. We do not have the record here but it does not sound like she had any polyps or concerning findings per her .
-Will add hepatitis serologies due to elevated LFTs. Unclear etiology in regards to this. CT findings showed normal liver appearance
-Will follow
-
-
Thank you for consultation and allowing me to participate in the patient's care. Please call the internal combustion engine subassembler GI physician during the after hours with any questions or concerns.
[2024-02-14 14:12] LABS: TSH 3.44 uIU/ml (0.47-4.68)
[2024-02-14 14:13] LABS: Hepatitis B Surface Antigen Negative (Negative)
--- NOTE | 2024-02-14 14:14 | CM ---
Reviewed the chart notes and spoke with the patient's spouse at the bedside. The patient resides with her spouse and a 24hr caregiver in a one story ome with one step to enter. The patient has a wheelchair for mobility. The patient has had [facility] in the past, but no SNF. The patient's pharmacy of choice is the [facility]. CM continues to be available to patient/family and is monitoring medical plan for needs at discharge.
Plan: Discharge plans will depend on the patient's progress. May benefit from VN at discharge.
[2024-02-14 14:30] LABS: Hepatitis B Surface Antibody Negative; Hepatitis C Antibody Negative (Negative)
--- NOTE | 2024-02-14 14:36 | PTCARENOTE ---
Milk of molasses enema given. Patient had small bm. GI made aware. Suppository ordered for 1800 if patient does not have any more bm by that time.
[2024-02-14] MEDS: SEROQUEL PO (14:53)
[2024-02-14] MEDS: SYNTHROID PO (14:53)
[2024-02-14] MEDS: ARICEPT PO (14:54)
[2024-02-14] MEDS: LIPITOR PO (14:54)
[2024-02-14] MEDS: DULCOLAX 10 MG RECTAL (14:56)
--- NOTE | 2024-02-14 15:05 | PTCARENOTE ---
PRN Dulcolax suppository given now per GI instead of 1800.
[2024-02-14 15:17] LABS: Hepatitis A Antibody, Total Positive (Negative)
[2024-02-14 15:25] VITALS: BP 130/72
--- NOTE | 2024-02-14 16:44 | W.PN.UPDATE ---
Update Note
Progress Note Update
Billing purposes
[2024-02-14] MEDS: LOVENOX 40 MG SC (16:50)
--- NOTE | 2024-02-14 18:18 | PTCARENOTE ---
Pt. had large incontinent bm after suppository. Pt. resting comfortably in bed.
[2024-02-14] MEDS: STERILE WATER FOR INJECTION 10 ML IV (21:30)
[2024-02-14] MEDS: ROCEPHIN 1000 MG IV (21:32)
[2024-02-14 23:44] VITALS: BP 143/80
[2024-02-15] MEDS: FLAGYL 500 MG 100 IV ×2 (02:31→17:28)
[2024-02-15 06:00] VITALS: BMI 25.5
[2024-02-15 06:30] VITALS: BMI 25.1
[2024-02-15 07:30] VITALS: BP 141/74
[2024-02-15 08:14] LABS: % Basophils 0.4 % (0-2); % Eosinophils 1.8 % (0-6); % Immature Granulocytes 0.5 % (0-0.5); % Lymphocytes 18.5 % (20.5-51.1); % Monocytes 7.5 % (1.7-9.3); % Neutrophils 71.3 % (42.2-75.2); Absolute Eosinophils 0.2 10^3/uL (0-0.7); Absolute Lymphocytes 1.6 10^3/uL (1.2-3.4); Absolute Monocytes 0.6 10^3/uL (0.1-0.6); Absolute Neutrophils 6.1 10^3/uL (1.4-6.5); Hematocrit 39.9 % (37.0-47.0); Hemoglobin 13.2 g/dL (12.0-16.0); Mean Corp Hgb Conc. 33.1 g/dL (33.0-37.0); Mean Corpuscular Hgb 29.3 pg (27.0-31.0); Mean Corpuscular Volume 88.7 fL (81.0-99.0); Mean Platelet Volume 10.5 fL (7.4-10.4); Nucleated Red Blood Cells % 0 %; Platelet Count 198 10^3/uL (130-400); Red Cell Dist. Width 15.7 % (11.5-14.5); White Blood Cell Count 8.5 10^3/uL (4.8-10.8)
[2024-02-15 08:36] LABS: Albumin 3.4 g/dl (3.5-5.0)
[2024-02-15 08:47] LABS: ALT (SGPT) 79 U/L (0-35); AST (SGOT) 123 U/L (14-36); Alkaline Phosphatase 92 U/L (38-126); Blood Urea Nitrogen 10 mg/dl (7-17); Calcium 10.2 mg/dl (8.4-10.2); Carbon Dioxide 23 mmol/L (22-30); Chloride 104 mmol/L (98-107); Estimated Creatinine Clearance 76 ml/min; Glucose 78 mg/dl (70-99); Potassium 3.9 mmol/L (3.5-5.1); Sodium 137 mmol/L (135-145); Total Bilirubin 0.5 mg/dl (0.2-1.3); Total Protein 6.3 g/dl (6.3-8.2); eGFR > 60.00
--- NOTE | 2024-02-15 08:55 | W.PN.GI.CBS2 ---
Today's Communication / Plan
-
AXR without much stool burden
Diet once mental status improves. Await speech re-eval
C/w miralax daily
GI will sign off please call for questions. She follows with Dr Link at [facility]
Assessment / Plan
-
becca is a 68yo W bed bound with h/o dementia who was brought to ED for change in mental status and fecal impaction seen on CT scan. She was chronically constipated in past and saw GI at [facility]. Was recommended miralax but stopped. Now
constipated with overflow diarrhea. Also refusing to eat
Impression
- Fecal impaction in setting of dementia and bedbound
- CAD
- HL
- Hypothyroidism
- Anxiety/depression
- GERD
Recommendation
- AXR today without much stool burden. She responded well to MOM enema and ducolax supp x2 yesterday
- Await speech eval today
- resumption of diet whenever mental status improves
- Resume miralax daily basis, advise to c/w at home to prevent re-impaction
- CMP and TSH ok
- She had colonoscopy 4yrs ago and can FU with her GI Dr Franks at [facility] on OP basis.
GI will sign off please call for questions
Subjective
Subjective
Date of Service: February 15, 2024
Per nursing note she had large BM after ducolax supp x2 and MOM enema yesterday. Denies abd pain.
Objective
Data Reviewed
Laboratory Data:
Laboratory Results
02/15/24 07:36
02/15/24 07:36
Laboratory Results
Magnesium 1.7 mg/dl (1.6-2.3) 02/14/24 05:25
Total Bilirubin 0.5 mg/dl (0.2-1.3) 02/15/24 07:36
AST 123 U/L (14-36) H 02/15/24 07:36
ALT 79 U/L (0-35) H 02/15/24 07:36
Alkaline Phosphatase 92 U/L (38-126) 02/15/24 07:36
Lipase 108 U/L (23-300) 02/13/24 14:32
Vital Signs and I&O:
Vital Signs
Temp Pulse Resp BP Pulse Ox
98.2 F 77 18 141/74 96
02/15/24 07:30 02/15/24 07:30 02/15/24 07:30 02/15/24 07:30 02/15/24 07:30
I&O
02/14/24 02/15/24 02/16/24
06:59 06:59 06:59
Intake Total 580 / 580 900 / 900
Balance 580 / 580 900 / 900
Physical Exam
Physical Exam
GEN: No acute distress, non verbal
HEENT: anicteric, extraocular movements intact, dry MMM
GI: soft, non-distended, not tender to palpation, normal active bowel sounds, no hepatosplenomegaly
EXT: warm, well perfused, trace edema bilaterally
NEURO: AAOx2 appears more awake today
--- NOTE | 2024-02-15 10:00 | W.PN.HOSP.TC ---
Today's Communication/Plan
-
Follow oral intake tolerance
Follow abdominal x-ray
Continue with laxatives
DC planning
Assessment / Plan
Assessment / Plan
68yo F with Lewy Body Dementia (AAOx0, bedbound baseline) presented with constipation alternating to diarrhea and cough.
Bowel Habit Change
Severe constipation with impaction
Dementia with bedbound status-not on laxative regimen
- reports weeks of severe constipation followed by loose watery, nonbloody stools x 2 days -- 'runoff stools'
- CT a/p: Moderate fecal material in the rectum concerning for fecal impaction, Large hiatal hernia.
- Disimpacted in ER.
-Post disimpaction patient got an enema and Dulcolax suppository.
-Follow-up abdominal x-ray pending today
-GI following
Continue with bowel regimen. TSH normal.
Leukocytosis -normalized
- WBC 15.0k on admission. reporting cough for weeks as well as change in bowel habits
- Initial CXR read as no acute findings. Mild Bibasilar consolidations on CT a/p
- Urine growing E. coli -- sensitivities noted
- Concern for aspiration - speech eval noted - currently on modified diet
- CT no colitis
-Patient currently on ceftriaxone and Flagyl. Patient being poor historian cannot conclude if she is got symptomatic UTI. With respiratory symptoms , concern of aspiration and bibasilar consolidation and UTI will treat probably symptomatic
pulmonary vs UTI infection and narrow antibiotics to Augmentin now.
Lewy Body Dementia / Anxiety / Depression
- Stable on home sertraline, seroquel, memantine
- Outpatient follow up wtih Dr. Galan at [facility]
CAD / HLD - Stable on home plavix/statin.
Code Status: DNR/DNI, is medical POA
DVT PPx: Lovenox
Diet: modified diet
Anticipated Discharge: Within 24 hours
Subjective/Interval History
-
Date of Service: February 15, 2024
Non verbal
DW RN - no overnight issues
Had response to enema yesterday
Objective Data
-
Labs:
Laboratory Results
02/15/24
07:36
WBC 8.5
Hgb 13.2
Hct 39.9
Plt Count 198
Sodium 137
Potassium 3.9
Chloride 104
Carbon Dioxide 23
BUN 10
Creatinine 0.5 L
Glucose 78
Calcium 10.2
Total Bilirubin 0.5
AST 123 H
ALT 79 H
Alkaline Phosphatase 92
Vital Signs:
Vital Signs
Temp Pulse Resp BP Pulse Ox
98.2 F 77 18 141/74 96
02/15/24 07:30 02/15/24 07:30 02/15/24 07:30 02/15/24 07:30 02/15/24 07:30
I&O
02/14/24 02/15/24 02/16/24
06:59 06:59 06:59
Intake Total 580 / 580 900 / 900
Balance 580 / 580 900 / 900
Review of Systems
-
Unable to obtain full review of systems at this time due to: Dementia
Physical Exam
-
General: No Apparent Distress
HEENT: Moist Mucous Membranes
Respiratory: Clear to Auscultation (anteriorly)
Cardiac: Regular Rhythm and S1/S2; Negative Tachycardic
GI: Soft, Nontender (?), Nondistended and Normal Bowel Sounds
Neuro: Awake and Alert (smile on but non verbal)
Data Reviewed
-
Labs: Labs Reviewed by me
[2024-02-15] MEDS: NAMENDA PO ×2 (11:00→19:17)
[2024-02-15] MEDS: VITAMIN C PO ×2 (11:01→19:17)
[2024-02-15] MEDS: ZINC SULFATE PO ×2 (11:01→19:18)
[2024-02-15] MEDS: VITAMIN D3 (cholecalciferol) PO ×2 (11:01→19:18)
[2024-02-15] MEDS: FLAGYL 500 MG IV (11:02)
--- NOTE | 2024-02-15 15:55 | CHAP ---
Extended visit with Netta and her devoted , Sy, who shared his anxiety about her progress. Emotional and spiritual support provided.
[2024-02-15 16:19] VITALS: BP 133/75
[2024-02-15] MEDS: ARICEPT PO (16:40)
[2024-02-15] MEDS: SYNTHROID PO (16:40)
[2024-02-15] MEDS: SEROQUEL PO (16:40)
[2024-02-15] MEDS: LIPITOR PO (16:40)
[2024-02-15] MEDS: D5/0.45%NACL 1000 IV (16:49)
[2024-02-15] MEDS: LOVENOX 40 MG SC (17:26)
[2024-02-15] MEDS: ROCEPHIN 1000 MG IV (17:27)
[2024-02-15] MEDS: STERILE WATER FOR INJECTION 10 ML IV (17:27)
[2024-02-15] MEDS: CHLORASEPTIC/SORE THROAT SPRAY 1 SPRAY PO (22:05)
--- NOTE | 2024-02-15 23:00 | PTCARENOTE ---
Patient's requested something for patient's cough; patient's stated that he noted patient to be coughing more and patient appeared uncomfortable; [facility] notified; PRN Chloraseptic [place] ordered (See MAR).
[2024-02-15 23:17] VITALS: BP 136/98
[2024-02-16] MEDS: FLAGYL 500 MG 100 IV ×3 (01:51→17:26)
--- NOTE | 2024-02-16 04:02 | W.PN.UPDATE ---
Update Note
Progress Note Update
Per nursing, patient having increased cough. 02/12 CT ab/pel- mild Bibasilar consolidation, 02/12 CXR - no acute disease of the chest. Pt NPO followed by speech. Rx Chloraseptic spray & Rx CXR in AM.
[2024-02-16 06:00] VITALS: BMI 24.8
[2024-02-16] MEDS: D5/0.45%NACL 1000 IV ×2 (06:05→21:24)
[2024-02-16 07:35] VITALS: BP 132/87
[2024-02-16] MEDS: NAMENDA PO ×2 (08:49→20:24)
[2024-02-16] MEDS: VITAMIN C PO ×2 (08:50→20:24)
[2024-02-16] MEDS: ZINC SULFATE PO ×2 (08:50→20:24)
[2024-02-16] MEDS: VITAMIN D3 (cholecalciferol) PO ×2 (08:50→20:24)
[2024-02-16] MEDS: DULCOLAX 10 MG RECTAL (09:44)
[2024-02-16 10:19] LABS: % Basophils 0.5 % (0-2); % Eosinophils 0.7 % (0-6); % Immature Granulocytes 0.3 % (0-0.5); % Lymphocytes 17.2 % (20.5-51.1); % Monocytes 8.7 % (1.7-9.3); % Neutrophils 72.6 % (42.2-75.2); Absolute Basophils 0.1 10^3/uL (0-0.2); Absolute Eosinophils 0.1 10^3/uL (0-0.7); Absolute Lymphocytes 1.7 10^3/uL (1.2-3.4); Absolute Monocytes 0.8 10^3/uL (0.1-0.6); Hematocrit 40.1 % (37.0-47.0); Hemoglobin 13.3 g/dL (12.0-16.0); Mean Corp Hgb Conc. 33.2 g/dL (33.0-37.0); Mean Corpuscular Hgb 28.3 pg (27.0-31.0); Mean Corpuscular Volume 85.3 fL (81.0-99.0); Mean Platelet Volume 10.3 fL (7.4-10.4); Nucleated Red Blood Cells % 0 %; Platelet Count 236 10^3/uL (130-400); Red Cell Dist. Width 15.4 % (11.5-14.5); White Blood Cell Count 9.6 10^3/uL (4.8-10.8)
[2024-02-16 12:07] LABS: ALT (SGPT) 76 U/L (0-35); AST (SGOT) 121 U/L (14-36); Albumin 3.6 g/dl (3.5-5.0); Alkaline Phosphatase 91 U/L (38-126); Blood Urea Nitrogen 8 mg/dl (7-17); Carbon Dioxide 25 mmol/L (22-30); Chloride 102 mmol/L (98-107); Estimated Creatinine Clearance 76 ml/min; Glucose 114 mg/dl (70-99); Magnesium 1.6 mg/dl (1.6-2.3); Potassium 3.8 mmol/L (3.5-5.1); Sodium 136 mmol/L (135-145); Total Bilirubin 0.5 mg/dl (0.2-1.3); Total Protein 6.6 g/dl (6.3-8.2); eGFR > 60.00
--- NOTE | 2024-02-16 13:41 | CHAP ---
Netta opened her eyes when I spoke, but did not give definite responses. She was shaking/twitching a bit - I brought another blanket for her. Offered soothing words, assured her she is loved, and read to her from the Psalms.
--- NOTE | 2024-02-16 14:17 | CON.PUL ---
Addendum entered and electronically signed by Gavino Williamson MD 02/16/24 16:01:
ABG reviewed, room air
7.43/39/115
No indication for noninvasive ventilation at this time
Original Note:
Consultation
Consultation Request
Date/Time Consultation Requested: 02/15
Date/Time Consultation Performed: 02/15
Reason for Consultation: Cough
Medical History
-
History of Present Illness:
History obtained from the at the bedside along with reviewing medical records. 68-year-old female with history of Lewy body dementia diagnosed 2016, followed by [place] [facility], hyperlipidemia, hypothyroidism, presented on 02/12 with
increased lethargy according to the . Patient is unable to provide history due to dementia. Patient at baseline, requires 24/7 aide, Le lift to move. Patient able to eat with assistance but few days prior to admission, increased
lethargy, difficulty swallowing, diarrhea. No clear history of fevers, chills, falls. Patient does not ambulate. Upon arrival to [facility], afebrile, pulse 86, breathing at 16, blood pressure 124/88, 98%. CT abdomen showed fecal
impaction. GI was consulted. Patient had manual disimpaction and milk of magnesia enema. Patient also has had a persistent cough. states that she does cough off-and-on in the past, denies hemoptysis. There may be some element of
dysphagia according with the describes. We are asked to comment on cough
.
PMH: Lewy body dementia diagnosed 2016, hypothyroidism, history of depression, hypercholesterolemia. History of multiple TIAs in 2007
Past Medical History
Past Medical History: None (See above)
Past Surgical History: None (See above)
Social History
Tobacco: Non-smoker
Alcohol: None
Drug: None
Personal:
Living: With Family
Employment: Not Employed
Family History
Family History: Other (Negative for neurological disease)
Allergies / Home Medications
Allergies
Allergy/AdvReac Type Severity Reaction Status Date / Time
haloperidol Allergy Unknown Unknown Verified 02/13/24 14:29
chlorpromazine Allergy Unknown Verified 02/13/24 14:29
[From Thorazine]
risperidone [From Risperdal] Allergy Unknown Verified 02/13/24 14:29
anticholenergics Allergy Unknown Uncoded 02/13/24 14:29
dopamine agonists Allergy Unknown Uncoded 02/13/24 14:29
Home Medications
�Medication �Instructions �Recorded �Confirmed �Last Taken �Type
Probiotic 2.5 mg PO DAILY probiotic 02/13/24 02/13/24 Unknown History
ascorbic acid (vitamin C) 500 mg 500 mg PO BID Supplement 02/13/24 02/13/24 Unknown History
tablet (Vitamin C)
biotin 2,500 mcg chewable tablet 2,500 mcg PO BID Supplement 02/13/24 02/13/24 Unknown History
cholecalciferol (vitamin D3) 25 25 mcg PO BID Supplement 02/13/24 02/13/24 Unknown History
mcg (1,000 unit) tablet (Vitamin
D3)
clopidogrel 75 mg tablet 75 mg PO DAILY Blood Clot 02/13/24 02/13/24 Unknown History
Prevention/Tx
coconut oil 4,000 mcg PO BID Supplement 02/13/24 02/13/24 Unknown History
donepezil 10 mg tablet 10 mg PO QPM dementia 02/13/24 02/13/24 Unknown History
fluticasone propionate 50 1 spray intranasal QPM PRN nasal 02/13/24 02/13/24 Unknown History
mcg/actuation nasal congestion
spray,suspension
levocetirizine 5 mg tablet 5 mg PO DAILY Allergies 02/13/24 02/13/24 Unknown History
levothyroxine 50 mcg tablet 50 mcg PO QPM hypothyroidism 02/13/24 02/13/24 Unknown History
memantine 10 mg tablet 10 mg PO BID dementia 02/13/24 02/13/24 Unknown History
usjgbboa-hxq-wlqtz acid 200 1 tab PO BID Supplement 02/13/24 02/13/24 Unknown History
mcg-collagen, hydrolyzed 25 mg
chew tablet (Women's Multivitamin
with Collagen)
omeprazole 40 mg capsule,delayed 40 mg PO DAILY Gastrointestinal 02/13/24 02/13/24 Unknown History
release Issue
quetiapine 25 mg tablet 25 mg PO BID 02/13/24 02/13/24 Unknown History
depression/anxiety/Lewy Body
dementia
quetiapine 50 mg tablet 50 mg PO QPM 02/13/24 02/13/24 Unknown History
depression/anxiety/Lewy Body
dementia
sertraline 100 mg tablet 200 mg PO DAILY depression/anxiety 02/13/24 02/13/24 Unknown History
simvastatin 40 mg tablet 40 mg PO QPM High Cholesterol 02/13/24 02/13/24 Unknown History
zinc acetate 50 mg (zinc) capsule 50 mg PO BID Supplement 02/13/24 02/13/24 Unknown History
Review of Systems
-
History Source: Family
Vitals / Labs / Diagnostic Testing
Vital Signs
Temp Pulse Resp BP Pulse Ox
98.2 F 80 14 132/87 92
02/16/24 07:35 02/16/24 07:35 02/16/24 07:35 02/16/24 07:35 02/16/24 07:35
Lab Data
02/16/24 10:04
02/16/24 11:37
Microbiology
02/14/24 16:58 Feces/Stool Salmonella/Shigella Culture - Final
No Salmonella, Shigella, Aeromonas or Plesiomonas species
isolated.
02/14/24 16:58 Feces/Stool Campylobacter Culture - Final
No Campylobacter species isolated.
02/13/24 20:08 Blood/Venous Blood Culture - Preliminary
No Growth in 48 hours- Final report to follow
02/13/24 20:08 Blood/Venous Blood Culture - Preliminary
No Growth in 48 hours- Final report to follow
02/13/24 15:47 Urine Urine Culture - Final
Escherichia coli
02/13/24 22:30 Nasal Swab Influenza Types A & B (EJ) - Final
Negative for Influenza A & B, NAAT
Negative results must be combined with clinical observations
and patient history.
Nucleic Acid Amplification test (NAAT)performed on the
[employer] platform.
Diagnostic Testing:
Physical Exam
-
HEENT: Normocephalic, Anicteric and Other (Dry mucosa, patient does not open mouth to examine)
Cardiovascular: S1/S2, Regular Rhythm, Murmur (n), Rub (n) and Peripheral Edema (n)
Respiratory: Wheeze (n), Rales (n), Rhonchi (n), Non-Labored Respirations and Other (Poor inspiratory effort)
GI: Soft, Non Distended and Non Tender
Neurology: Other (She is awake, occasional myoclonus, moves upper extremities, mild contractions noted. Does not cough on command)
Skin: Other (No clubbing, cyanosis)
General: Comfortable (Appears comfortable outside of movement disorder)
Assessment
-
68-year-old female with history of Lewy body disease, persistent cough, high risk for aspiration, presents with lethargy, GI symptoms. Patient found to have obstipation, improved following manual disimpaction. We are asked to comment on cough
Aspiration syndrome, suspected
Dysphagia
Mild bibasilar atelectasis per imaging
Moderate size hiatal hernia
Leukocytosis, resolved
Mild transaminitis
E. coli UTI
Conditions present prior to admission
Lewy body dementia, diagnosed 2016
Followed by [place] [facility]
History of multiple TIAs, 2007
Hypertension/hyperlipidemia
DNR
Plan/recommendations
At this time, patient appears to be comfortable. She does not cough on command. She does speak 1 word at a time
She is not cooperating with deep breathing during exam, likely due to underlying neuromuscular disease/dementia
Chest x-ray suggestive of left basilar atelectasis
Abdominal CT with moderate size hiatal hernia, associated atelectasis. There is no acute infiltrate
Moving forward
Unfortunately, therapeutic options are lacking given underlying neurological disease
I discussed at length with at the bedside potential hypercapnia contributing to lethargy
On further questioning, states that this may be more of a chronic issue but worsened over the last week
Will check baseline ABG
If abnormal, will consider trial of nocturnal CPAP with nasal mask while is present
Do not think nebulized therapy, mucolytic therapy would help given weak cough
Avoid narcotic therapy, sedation, medications that may lead to muscle weakness
Patient is currently on ceftriaxone for abnormal urine culture
Unclear if this may have contributed to lethargy.
Defer further antibiotic therapy to primary service
Would recommend positional therapy, aspiration precautions
Discussed inability to cough if has aspiration given underlying neuromuscular disease, Lewy body dementia
aware of terminal nature of neurological process, and remains supportive of his
Patient is DNR
We will follow
[2024-02-16 14:21] LABS: B.E. 1.5 mmol/L; HCO3 25.9 mmol/L (21-28); O2 Saturation % 98.4 % (94-98); PCO2 39 mmHg (32-35); PO2 115 mmHg (83-108); pH 7.43 (7.35-7.45)
[2024-02-16 15:40] VITALS: BP 105/61
[2024-02-16] MEDS: SEROQUEL PO (15:44)
[2024-02-16] MEDS: LIPITOR PO (15:44)
[2024-02-16] MEDS: SYNTHROID PO (15:44)
[2024-02-16] MEDS: ARICEPT PO (15:44)
[2024-02-16] MEDS: LOVENOX 40 MG SC (17:26)
[2024-02-16] MEDS: ROCEPHIN 1000 MG IV (17:26)
[2024-02-16] MEDS: STERILE WATER FOR INJECTION 10 ML IV (17:26)
--- NOTE | 2024-02-16 18:49 | W.PN.HOSP.TC ---
Today's Communication/Plan
-
Continue antibiotics
Appreciate pulm
Assessment / Plan
Assessment / Plan
Physical Exam
General: No Apparent Distress
HEENT: Moist Mucous Membranes
Respiratory: Clear to Auscultation (anteriorly)
Cardiac: Regular Rhythm and S1/S2
GI: Soft, Nontender (?), Nondistended and Normal Bowel Sounds
Neuro: Awake and Alert (smile on but non verbal)
Assessment/Plan
68yo F with Lewy Body Dementia (AAOx0, bedbound baseline) presented with constipation alternating to diarrhea and cough.
Bowel Habit Change
Severe constipation with impaction
- reports weeks of severe constipation followed by loose watery, nonbloody stools x 2 days -- 'runoff stools'
- CT a/p: Moderate fecal material in the rectum concerning for fecal impaction, Large hiatal hernia.
- Disimpacted in ER.
-Post disimpaction patient got an enema and Dulcolax suppository.
-Follow-up abdominal x-ray pending today
-GI following
Continue with bowel regimen. TSH normal.
Lethargy in the Setting of Lewy Body Dementia
Suspected Aspiration Pneumonia
Mild Bibasilar Atelectasis on Imaging
-Already getting antibiotics -- Augmentin
-Hypercapnia possibly contributing
-Avoid narcotic therapy, sedation, or medications that can lead to muscle weakness
-Pulmonary consulted, recommendations appreciated
Leukocytosis -normalized
- WBC 15.0k on admission. reporting cough for weeks as well as change in bowel habits
- Initial CXR read as no acute findings. Mild Bibasilar consolidations on CT a/p
- Urine growing E. coli -- sensitivities noted
- Concern for aspiration - speech eval noted - currently on modified diet
- CT no colitis
-Patient was on ceftriaxone and Flagyl. Patient being poor historian cannot conclude if she is got symptomatic UTI. With respiratory symptoms , concern of aspiration and bibasilar consolidation and UTI will treat probably symptomatic pulmonary
versus UTI infection and antibiotics were narrowed to Augmentin.
Lewy Body Dementia / Anxiety / Depression
- Stable on home sertraline, seroquel, memantine
- Outpatient follow up wtih Dr. Galan at [facility]
CAD / HLD - Stable on home plavix/statin.
Code Status: DNR/DNI, is medical POA
DVT PPx: Lovenox
Diet: Strict NPO as per speech -- daily evaluation to see whether that can be changed
Anticipated Discharge: 24 - 48 hours
Subjective/Interval History
-
Date of Service: February 16, 2024
Patient was seen and examined. She remains nonverbal, she was on 2 L of oxygen. Overnight, she was reported to have increased cough, repeat chest x-ray was ordered.
Objective Data
-
Labs:
Laboratory Results
02/16/24 02/16/24 02/16/24
10:04 11:37 14:13
WBC 9.6
Hgb 13.3
Hct 40.1
Plt Count 236
HCO3 25.9
Sodium Cancelled 136
Potassium Cancelled 3.8
Chloride Cancelled 102
Carbon Dioxide Cancelled 25
BUN Cancelled 8
Creatinine Cancelled 0.4 L
Glucose Cancelled 114 H
Calcium Cancelled 10.0
Total Bilirubin Cancelled 0.5
AST Cancelled 121 H
ALT Cancelled 76 H
Alkaline Phosphatase Cancelled 91
Vital Signs:
Vital Signs
Temp Pulse Resp BP Pulse Ox
98.3 F 68 18 105/61 95
02/16/24 15:40 02/16/24 15:40 02/16/24 15:40 02/16/24 15:40 02/16/24 15:40
I&O
02/15/24 02/16/24 02/17/24
06:59 06:59 06:59
Intake Total 900 / 900 100 / 100 1200 / 1200
Balance 900 / 900 100 / 100 1200 / 1200
[2024-02-16 23:39] VITALS: BP 142/81
[2024-02-17] MEDS: FLAGYL 500 MG 100 IV ×3 (01:57→17:34)
[2024-02-17 04:58] LABS: % Basophils 0.5 % (0-2); % Eosinophils 0.5 % (0-6); % Immature Granulocytes 0.5 % (0-0.5); % Lymphocytes 17.7 % (20.5-51.1); % Monocytes 8.2 % (1.7-9.3); % Neutrophils 72.6 % (42.2-75.2); Absolute Basophils 0.1 10^3/uL (0-0.2); Absolute Eosinophils 0.1 10^3/uL (0-0.7); Absolute Immature Granulocytes 0.1 10^3/uL (0-0.05); Absolute Lymphocytes 1.7 10^3/uL (1.2-3.4); Absolute Monocytes 0.8 10^3/uL (0.1-0.6); Absolute Neutrophils 6.9 10^3/uL (1.4-6.5); Hematocrit 39.6 % (37.0-47.0); Hemoglobin 13.2 g/dL (12.0-16.0); Mean Corp Hgb Conc. 33.3 g/dL (33.0-37.0); Mean Corpuscular Hgb 28.1 pg (27.0-31.0); Mean Corpuscular Volume 84.3 fL (81.0-99.0); Mean Platelet Volume 10.3 fL (7.4-10.4); Nucleated Red Blood Cells % 0 %; Platelet Count 249 10^3/uL (130-400); Red Cell Dist. Width 15.4 % (11.5-14.5); White Blood Cell Count 9.5 10^3/uL (4.8-10.8)
[2024-02-17 05:40] LABS: ALT (SGPT) 75 U/L (0-35); AST (SGOT) 107 U/L (14-36); Albumin 3.5 g/dl (3.5-5.0); Alkaline Phosphatase 94 U/L (38-126); Blood Urea Nitrogen 9 mg/dl (7-17); Calcium 9.8 mg/dl (8.4-10.2); Carbon Dioxide 23 mmol/L (22-30); Chloride 105 mmol/L (98-107); Estimated Creatinine Clearance 76 ml/min; Glucose 113 mg/dl (70-99); Magnesium 1.5 mg/dl (1.6-2.3); Potassium 3.5 mmol/L (3.5-5.1); Sodium 137 mmol/L (135-145); Total Bilirubin 0.4 mg/dl (0.2-1.3); Total Protein 6.5 g/dl (6.3-8.2); eGFR > 60.00
[2024-02-17 06:00] VITALS: BMI 24.7
[2024-02-17 08:12] VITALS: BP 123/80
[2024-02-17] MEDS: NAMENDA PO ×2 (08:58→19:31)
[2024-02-17] MEDS: ZINC SULFATE PO ×2 (08:59→19:31)
[2024-02-17] MEDS: VITAMIN D3 (cholecalciferol) PO ×2 (08:59→19:31)
[2024-02-17] MEDS: VITAMIN C PO ×2 (08:59→19:31)
--- NOTE | 2024-02-17 09:05 | W.PN.PUL3 ---
Today's Communication / Plan
-
Aspiration precautions
Neuro consult
ACCESSIONER eval
NPO for now (per ACCESSIONER)
Maintain SpO2>90-94%
Assessment
-
68-year-old female with history of Lewy body disease, persistent cough, high risk for aspiration, presents with lethargy, GI symptoms. Patient found to have obstipation, improved following manual disimpaction. We are asked to comment on cough
Aspiration syndrome, suspected
Dysphagia
Mild bibasilar atelectasis per imaging
Moderate size hiatal hernia
Leukocytosis, resolved
Mild transaminitis
E. coli UTI
Conditions present prior to admission
Lewy body dementia, diagnosed 2016
Followed by [place] [facility]
History of multiple TIAs, 2007
Hypertension/hyperlipidemia
DNR
Plan/recommendations
At this time, patient appears to be comfortable. She does not cough on command. She does speak 1 word at a time
She is not cooperating with deep breathing during exam, likely due to underlying neuromuscular disease/dementia
Chest x-ray suggestive of left basilar atelectasis
Abdominal CT with moderate size hiatal hernia, associated atelectasis. There is no acute infiltrate
Moving forward
Unfortunately, therapeutic options are lacking given underlying neurological disease
No hypercapnea as etiology of her AMS; pt also not hypoxic (per ABG from 02/16/2024)
On further questioning, states that this may be more of a chronic issue but worsened over the last week
Do not think nebulized therapy, mucolytic therapy would help given weak cough
Avoid narcotic therapy, sedation, medications that may lead to muscle weakness
Patient is currently on ceftriaxone for abnormal urine culture
Unclear if this may have contributed to lethargy.
Defer further antibiotic therapy to primary service
Would recommend positional therapy, aspiration precautions
Discussed inability to cough if has aspiration given underlying neuromuscular disease, Lewy body dementia
After I discussed pt's clinical status and that she is not improving as quickly as had hoped, he is requesting neurology evaluation. I think this is reasonable given her Hx of LB-dementia. Pt already follows with Dr. Stanley with Neurology at
[facility].
aware of terminal nature of neurological process, and remains supportive of his
Patient is DNR
We will briefly follow.
Total time spent today was 25 minutes for this encounter. Time includes reviewing laboratory test/imaging results, reviewing pertinent medical records, obtaining and reviewing medical history, performing an appropriate exam, ordering medications,
tests and procedures. Time also includes documentation of this encounter, coordinating patient care and communicating with other healthcare professionals. Total time does not include separately billed tests performed on this date of service.
Data:
CXR 02-16-2024: There is small-volume pleural-parenchymal airspace disease at the left lung base consistent with small left effusion with underlying pneumonia versus atelectasis.
Large hiatal hernia
Subjective Data
-
Date of Service:
Date of Service: February 17, 2024
Chief Complaint: Pulmonary Follow Up
Subjective:
Patient seen and evaluated today at bedside. at bedside and all questions were answered. Patient currently on room air breathing comfortably. Grimacing often.
Review of Systems
General: Other (Unable to obtain due to patient's acute clinical status)
Objective Data
Data Reviewed
Vital Signs / I&O / Oxygen:
Vital Signs
Temp Pulse Resp BP Pulse Ox
98.1 F 78 17 123/80 95
02/17/24 08:12 02/17/24 08:12 02/17/24 08:12 02/17/24 08:12 02/17/24 10:15
Intake and Output
02/16/24 02/17/24 02/18/24
06:59 06:59 06:59
Intake Total 100 / 100 1200 / 1200
Balance 100 / 100 1200 / 1200
SaO2 95
Nasal Cannula flow liters per 2
minute
Physical Exam
General: Chills (Negative) and Other (Grimacing often to both verbal and tactile stimuli)
HEENT: Normocephalic and Anicteric
Cardiovascular: S1-S2 and Peripheral Edema (negative)
Respiratory: Wheeze (negative), Rhonchi (negative), Accessory Resp Muscle Use (negative) and Other (Coarse BS bilaterally)
GI: Soft, Non Distended and Non Tender
Neurology: Awake and Other (unable to verbalize)
Skin: Warm and Dry
Labs/Micro/Reports
Lab Data
02/17/24 04:27
02/17/24 04:27
Laboratory Results
02/16/24
14:13
pH 7.43
pCO2 39 H
pO2 115 H
HCO3 25.9
O2 Delivery Level
Microbiology
02/14/24 16:58 Feces/Stool Salmonella/Shigella Culture - Final
No Salmonella, Shigella, Aeromonas or Plesiomonas species
isolated.
02/14/24 16:58 Feces/Stool Campylobacter Culture - Final
No Campylobacter species isolated.
02/14/24 16:58 Feces/Stool Shiga Toxin Test - Final
No E. coli Shiga Toxin 1 or 2 detected.
02/13/24 20:08 Blood/Venous Blood Culture - Preliminary
No Growth in 72 hours- Final report to follow
02/13/24 20:08 Blood/Venous Blood Culture - Preliminary
No Growth in 72 hours- Final report to follow
02/13/24 15:47 Urine Urine Culture - Final
Escherichia coli
[2024-02-17] MEDS: D5/0.45%NACL 1000 IV (11:56)
--- NOTE | 2024-02-17 13:30 | CM ---
Reviewed the chart notes and spoke with the patient's spouse at the bedside. Per spouse, the patient has not had adequate nutrition in 5 days and voiced concern. CM encouraged him to speak with attending regarding her NPO status and what other
strategies for nutrition are available. CM continues to be available to patient/family and is monitoring medical plan for needs at discharge.
Plan: Discharge plans will depend on the patient's progress.
--- NOTE | 2024-02-17 13:32 | PTCARENOTE ---
pt is currently strict NPO and was reassessed this morning morning by speech. pt at bedside. pt receiving IVF and IV abx. this nurse reached out to MD about getting any medications changed to IV since she is currently not receiving multiple
daily medications due to being NPO. per patients pt orientation has improved since the weekend but still lethargic and drowsy during assessment.
--- NOTE | 2024-02-17 14:56 | W.PN.HOSP.TC ---
Today's Communication/Plan
-
Hospice consult
Assessment / Plan
Assessment / Plan
Gen-sleepy but arousable, NAD
HEENT-NC, AT, anicteric, clear oral mm
Neck-supple
CV-reg, no M, +S1/S2
Lungs-clear B/L
Abd-soft, NT, ND
Ext-no edema
Musculoskeletal-no cyanosis, clubbing
Skin-warm and dry
Severe constipation with fecal impaction -last BM yesterday.
- reports weeks of severe constipation followed by loose watery, nonbloody stools x 2 days -- 'runoff stools'
- CT a/p: Moderate fecal material in the rectum concerning for fecal impaction, Large hiatal hernia.
- Disimpacted in ER.
-Post disimpaction patient got an enema and Dulcolax suppository.
-GI signed off
Continue with bowel regimen. TSH normal.
Acute TME -initially felt to be due to infection, but not improving. Suspect progression of underlying dementia.
Dysphagia -likely acute on chronic. Etiology suspected to be due to dementia currently n.p.o., unable to take oral medications. Recommend against a feeding tube given poor prognosis in the setting of dementia and high aspiration risk. Priority at
the end of life should not be nutrition, but comfort. Discussed in detail with patient's at the bedside.
E. coli UTI -currently on ceftriaxone, day 5. Can discontinue antibiotics after today. Leukocytosis resolved.
Suspected aspiration pneumonitis -due to dysphagia due to dementia. Doubt pneumonia. Discontinue metronidazole. Chest x-ray from 02/15 shows small volume pleural parenchymal airspace disease of the left lung base. Not hypoxic. Not requiring
oxygen.
Lewy Body Dementia -seems hospice appropriate given suspected progression, bedbound status, progressive dysphagia, etc. receptive to hospice, consult order placed.
Elevated transaminases -appears to be chronic. Unclear etiology. Stop further atorvastatin.
Anxiety / Depression
CAD - stable.
Hypothyroidism - on levothyroxine.
Hyperlipidemia -simvastatin at home.
DNR
Anticipated Discharge: Within 24 hours
Subjective/Interval History
-
Date of Service: February 17, 2024
Patient seen and examined. at the bedside. She is nonverbal for me.
Objective Data
-
Labs:
Laboratory Results
02/17/24
04:27
WBC 9.5
Hgb 13.2
Hct 39.6
Plt Count 249
Sodium 137
Potassium 3.5
Chloride 105
Carbon Dioxide 23
BUN 9
Creatinine 0.4 L
Glucose 113 H
Calcium 9.8
Total Bilirubin 0.4
AST 107 H
ALT 75 H
Alkaline Phosphatase 94
Vital Signs:
Vital Signs
Temp Pulse Resp BP Pulse Ox
98.1 F 78 17 123/80 95
02/17/24 08:12 02/17/24 08:12 02/17/24 08:12 02/17/24 08:12 02/17/24 10:15
I&O
02/16/24 02/17/24 02/18/24
06:59 06:59 06:59
Intake Total 100 / 100 1200 / 1200
Balance 100 / 100 1200 / 1200
Review of Systems
-
Unable to obtain full review of systems at this time due to: Dementia and Patient Non-verbal
[2024-02-17 15:03] VITALS: BP 164/88
[2024-02-17] MEDS: ARICEPT PO (17:30)
[2024-02-17] MEDS: SEROQUEL PO (17:31)
[2024-02-17] MEDS: SYNTHROID PO (17:31)
[2024-02-17] MEDS: LOVENOX 40 MG SC (17:33)
[2024-02-17] MEDS: STERILE WATER FOR INJECTION 10 ML IV (17:34)
[2024-02-17] MEDS: ROCEPHIN 1000 MG IV (17:34)
--- NOTE | 2024-02-17 21:49 | PTCARENOTE ---
Dr. Cherry aware of neurology consultation [facility].
[2024-02-17 23:18] VITALS: BP 136/87
[2024-02-18] MEDS: D5/0.45%NACL 1000 IV (01:41)
[2024-02-18] MEDS: FLAGYL 500 MG 100 IV ×2 (01:42→09:30)
[2024-02-18 06:00] VITALS: BMI 25.0
[2024-02-18 06:24] LABS: % Basophils 0.5 % (0-2); % Eosinophils 1.6 % (0-6); % Immature Granulocytes 0.5 % (0-0.5); % Lymphocytes 24.7 % (20.5-51.1); % Monocytes 10.3 % (1.7-9.3); % Neutrophils 62.4 % (42.2-75.2); Absolute Eosinophils 0.1 10^3/uL (0-0.7); Absolute Lymphocytes 2.2 10^3/uL (1.2-3.4); Absolute Monocytes 0.9 10^3/uL (0.1-0.6); Absolute Neutrophils 5.5 10^3/uL (1.4-6.5); Hematocrit 38.7 % (37.0-47.0); Hemoglobin 12.7 g/dL (12.0-16.0); Mean Corp Hgb Conc. 32.8 g/dL (33.0-37.0); Mean Corpuscular Hgb 27.9 pg (27.0-31.0); Mean Corpuscular Volume 85.1 fL (81.0-99.0); Mean Platelet Volume 10.4 fL (7.4-10.4); Nucleated Red Blood Cells % 0 %; Platelet Count 239 10^3/uL (130-400); Red Blood Cell Count 4.55 10^6/uL (4.20-5.40); Red Cell Dist. Width 15.6 % (11.5-14.5); White Blood Cell Count 8.9 10^3/uL (4.8-10.8)
[2024-02-18 06:48] LABS: ALT (SGPT) 55 U/L (0-35); AST (SGOT) 77 U/L (14-36); Albumin 3.1 g/dl (3.5-5.0); Alkaline Phosphatase 85 U/L (38-126); Blood Urea Nitrogen 7 mg/dl (7-17); Calcium 9.8 mg/dl (8.4-10.2); Carbon Dioxide 26 mmol/L (22-30); Chloride 106 mmol/L (98-107); Estimated Creatinine Clearance 76 ml/min; Glucose 110 mg/dl (70-99); Magnesium 1.5 mg/dl (1.6-2.3); Potassium 3.1 mmol/L (3.5-5.1); Sodium 139 mmol/L (135-145); Total Bilirubin 0.4 mg/dl (0.2-1.3); Total Protein 5.9 g/dl (6.3-8.2); eGFR > 60.00
[2024-02-18 07:52] VITALS: BP 145/91
[2024-02-18] MEDS: NAMENDA PO (07:53)
[2024-02-18] MEDS: VITAMIN D3 (cholecalciferol) PO ×2 (07:54→21:00)
[2024-02-18] MEDS: VITAMIN C PO ×2 (07:54→21:00)
[2024-02-18] MEDS: ZINC SULFATE PO (07:54)
--- NOTE | 2024-02-18 09:18 | W.PN.PUL3 ---
Today's Communication / Plan
-
Aspiration precautions
Diet as per HOUSE DETECTIVE
Maintain SpO2>90-94%
CM to see if there is a DME device to assist with NT-suctioning at home
Pulmonary service will now sign off. Please reconsult if there are any additional questions/concerns, or if patient's respiratory status deteriorates.
Assessment
-
68-year-old female with history of Lewy body disease, persistent cough, high risk for aspiration, presents with lethargy, GI symptoms. Patient found to have obstipation, improved following manual disimpaction. We are asked to comment on cough
Impression:
Aspiration syndrome, suspected
Dysphagia
Mild bibasilar atelectasis per imaging
Moderate size hiatal hernia
Leukocytosis, resolved
Mild transaminitis
E. coli UTI (kim-sensitive)
Conditions present prior to admission
Lewy body dementia, diagnosed 2016
Followed by [place] neurolog[facility]
History of multiple TIAs, 2007
Hypertension/hyperlipidemia
DNR
Plan/recommendations
At this time, patient appears to be comfortable. She does not cough on command. She does speak 1 word at a time
She is not cooperating with deep breathing during exam, likely due to underlying neuromuscular disease/dementia
Chest x-ray suggestive of left basilar atelectasis
Abdominal CT with moderate size hiatal hernia, associated atelectasis. There is no acute infiltrate
Moving forward
Unfortunately, therapeutic options are lacking given underlying neurological disease
No hypercapnea as etiology of her AMS; pt also not hypoxic (per ABG from 02/16/2024)
On further questioning, states that this may be more of a chronic issue but worsened over the last week
Do not think nebulized therapy, mucolytic therapy would help given weak cough
Avoid narcotic therapy, sedation, medications that may lead to muscle weakness
Patient is currently on ceftriaxone for abnormal urine culture
Unclear if this may have contributed to lethargy.
Defer further antibiotic therapy to primary service
Would recommend positional therapy, aspiration precautions
Discussed inability to cough wuth concern for aspiration given underlying neuromuscular disease, Lewy body dementia
Pt already follows with Dr. Stanley with Neurology at [facility].
Unfortunately there are limited inpatient therapies available, and this was confirmed with neurology as well as hospitalist
aware of terminal nature of neurological process, and remains supportive of his
He wishes to eventually bring pt home and feed her, knowing the risks of aspiration
Defer diet to HOUSE DETECTIVE
wishes to obtain a suctioning device to use at home as needed in case pt does aspiration --> I will consult CM to see if there is a DME equipment that can accommodate this
Patient is DNR
Pulmonary service will now sign off. Thank you for allowing us to be involved in the care of this patient. Please reconsult if there are any additional questions/concerns, or if patient's respiratory status deteriorates.
Total time spent today was 25 minutes for this encounter. Time includes reviewing laboratory test/imaging results, reviewing pertinent medical records, obtaining and reviewing medical history, performing an appropriate exam, ordering medications,
tests and procedures. Time also includes documentation of this encounter, coordinating patient care and communicating with other healthcare professionals. Total time does not include separately billed tests performed on this date of service.
Data:
CXR 02-16-2024: There is small-volume pleural-parenchymal airspace disease at the left lung base consistent with small left effusion with underlying pneumonia versus atelectasis.
Large hiatal hernia
Subjective Data
-
Date of Service:
Date of Service: February 18, 2024
Chief Complaint: Pulmonary Follow Up
Subjective:
Patient seen this morning. She is more alert today. as well as home health aide at bedside. All questions were answered. She is on room air breathing comfortably. No acute events reported overnight.
Review of Systems
General: Other (Unable to obtain due to patient's clinical status)
Objective Data
Data Reviewed
Vital Signs / I&O / Oxygen:
Vital Signs
Temp Pulse Resp BP Pulse Ox
98.9 F 86 18 145/91 94
02/18/24 07:52 02/18/24 07:52 02/18/24 07:52 02/18/24 07:52 02/18/24 08:00
Intake and Output
02/17/24 02/18/24 02/19/24
06:59 06:59 06:59
Intake Total 1200 / 1200 2220 / 2220
Balance 1200 / 1200 2220 / 2220
SaO2 94
Nasal Cannula flow liters per 2
minute
Physical Exam
General: Comfortable, Chills (Negative) and Other (Grimacing to tactile stimuli)
HEENT: Normocephalic and Anicteric
Cardiovascular: S1-S2 and Peripheral Edema (negative)
Respiratory: Wheeze (negative), Crackles (Left anterior hemithorax), Rhonchi (negative) and Accessory Resp Muscle Use (negative)
GI: Soft, Non Distended and Non Tender
Neurology: Awake and Other (unable to verbalize)
Skin: Warm and Dry
Labs/Micro/Reports
Lab Data
02/18/24 05:43
02/18/24 05:43
Microbiology
02/13/24 20:08 Blood/Venous Blood Culture - Preliminary
No Growth in 4 days- Final report to follow
02/13/24 20:08 Blood/Venous Blood Culture - Preliminary
No Growth in 4 days- Final report to follow
02/14/24 16:58 Feces/Stool Salmonella/Shigella Culture - Final
No Salmonella, Shigella, Aeromonas or Plesiomonas species
isolated.
02/14/24 16:58 Feces/Stool Campylobacter Culture - Final
No Campylobacter species isolated.
02/14/24 16:58 Feces/Stool Shiga Toxin Test - Final
No E. coli Shiga Toxin 1 or 2 detected.
02/13/24 15:47 Urine Urine Culture - Final
Escherichia coli
--- NOTE | 2024-02-18 09:57 | PN.CDI ---
CDI
- -
CDI:
Physician Documentation Request
Admit Date: 02/13/24 22:55
Dear Doctor Dipika,
Patient admitted for severe constipation.
H&P: 'nonverbal, bedbound, 24h home care'
02/13 GI PN: 'The patient does require being fed and does have a manufacturing technologist at home per her who is attentive to her needs.'
02/15 Hospitalist PN: 'Lewy Body Dementia (AAOx0, bedbound baseline)'
Which, if any, of the following is a likely etiology of the above abnormalities and treatment rendered:
- Functional quadriplegia
- Age related weakness or frailty
- Other
Use of terms such as suspected, likely, concern for, or probable (associated with a specific diagnosis that is being evaluated, monitored, or treated as if it exists) are acceptable and can be coded in the inpatient setting, when documented at the
time of discharge.
Thank you,
Brigid Kaiser RN, BSN
CDI Specialist
Available via [place] text
Please use your independent medical judgment in providing your response.
--- NOTE | 2024-02-18 10:15 | W.PN.HOSP.TC ---
Addendum entered and electronically signed by Gato Bar DO 02/18/24 13:30:
Functional quadriplegia
Original Note:
Today's Communication/Plan
-
Hospice meeting
Speech therapy follow-up
Assessment / Plan
Assessment / Plan
Gen-awake, alert, NAD
HEENT-NC, AT, anicteric, clear oral mm
Neck-supple
CV-reg, no M, +S1/S2
Lungs-clear B/L
Abd-soft, NT, ND
Ext-no edema
Musculoskeletal-no cyanosis, clubbing
Skin-warm and dry
Severe constipation with fecal impaction -last BM 02/15. Has not had significant oral intake due to severe dysphagia.
- reports weeks of severe constipation followed by loose watery, nonbloody stools x 2 days -- 'runoff stools'
- CT a/p: Moderate fecal material in the rectum concerning for fecal impaction, Large hiatal hernia.
- Disimpacted in ER.
-Post disimpaction patient got an enema and Dulcolax suppository.
-GI signed off
Continue with bowel regimen. TSH normal.
Acute TME -initially felt to be due to infection, but not improving. Suspect progression of underlying dementia.
Dysphagia -likely acute on chronic. Etiology suspected to be due to dementia, currently n.p.o., unable to take oral medications. Recommend against a feeding tube given poor prognosis in the setting of dementia and high aspiration risk. Priority
at the end of life should not be nutrition, but comfort. Discussed in detail with patient's at the bedside.
Speech therapy to follow-up today.
E. coli UTI -completed a course of antibiotics.
Suspected aspiration pneumonitis -due to dysphagia due to dementia. Doubt pneumonia. Discontinue metronidazole. Chest x-ray from 02/15 shows small volume pleural parenchymal airspace disease of the left lung base. Not hypoxic. Not requiring
oxygen.
Lewy Body Dementia -seems hospice appropriate given suspected progression, bedbound status, progressive dysphagia, etc. receptive to hospice, consult order placed.
Elevated transaminases -appears to be chronic. Unclear etiology. Stop further atorvastatin.
Anxiety / Depression
CAD - stable.
Hypothyroidism - on levothyroxine.
Hyperlipidemia -simvastatin at home.
DNR
I met with patient's at the bedside along with patient's brother on the phone. Her brother is a registered nurse. We discussed goals of care and my recommendation for hospice. Hospice to meet with today. I left a message with .
Jaden patient's neurologist in [place] to call me back ([phone]).
Anticipated Discharge: 24 - 48 hours
Subjective/Interval History
-
Date of Service: February 18, 2024
Patient seen and examined. Slightly more awake and alert today. No complaints. Minimal verbalization.
Objective Data
-
Labs:
Laboratory Results
02/18/24
05:43
WBC 8.9
Hgb 12.7
Hct 38.7
Plt Count 239
Sodium 139
Potassium 3.1 L
Chloride 106
Carbon Dioxide 26
BUN 7
Creatinine 0.4 L
Glucose 110 H
Calcium 9.8
Total Bilirubin 0.4
AST 77 H
ALT 55 H
Alkaline Phosphatase 85
Vital Signs:
Vital Signs
Temp Pulse Resp BP Pulse Ox
98.9 F 86 18 145/91 92
02/18/24 07:52 02/18/24 07:52 02/18/24 07:52 02/18/24 07:52 02/18/24 07:52
I&O
02/17/24 02/18/24 02/19/24
06:59 06:59 06:59
Intake Total 1200 / 1200 0 / 2220
Balance 1200 / 1200 2220 / 2220
Review of Systems
-
Unable to obtain full review of systems at this time due to: Dementia and Acuity
--- NOTE | 2024-02-18 10:45 | CM ---
Addendum entered by Dimple Ross RN 02/18/24 16:04:
CM spoke with the patient's spouse at the bedside. He declined hospice. Requested VN and Palliative Care. Referrals sent to VN and Palliative Care Team. Spouse seems to want patient to stay until she is eating better, which is unrealistic
as this is most probably her new baseline. Received CM consult for naso-endotracheal suction machine. [employer] does not carry, [employer] does carry a naso suction machine. Will need to be ordered closer to discharge.
Patient on pureed diet with honey thick liquids and aspiration precautions.
Plan: Discharge plans will be home with VN and Palliative Care.
Original Note:
Reviewed the chart notes. Received CM consult for hospice. Referral sent to Hospice. CM continues to be available to patient/family and is monitoring medical plan for needs at discharge.
Plan: Discharge plans will depend on the patient's progress. Home with VN or hospice.
--- NOTE | 2024-02-18 11:20 | HOSPNOTE ---
Met with spouse about hospice and the philosophy. At this time the spouse would like to continue with speech evaluations to see if patient is able to take in any oral nutrition. The plan would be for patient to go home with [facility] therapies and
palliative care. If the patient does not pass speech evaluation the spouse has refused a feeding tube and will then be agreeable to hospice services. I will check in daily with spouse.
[2024-02-18] MEDS: D5/0.45%NSS with KCL 20 MEQ 1000 IV (11:22)
[2024-02-18] MEDS: DULCOLAX 10 MG RECTAL (11:24)
--- NOTE | 2024-02-18 13:01 | PTOTSP ---
Dysphagia Therapy
Patient presents with signs concerning for moderate-severe dysphagia and is at an elevated risk for aspiration given concern for oral/pharyngeal dysphagia, LBD, and fluctuations in her alertness. She is at risk for complications from aspiration
given LBD, decreased mobility, and decreased cough strength.
buttermaker helper non-oral means are contraindicated given LBD. Could offer oral PO for comfort understanding aspiration risks/complications. Significant other, Larry, stated he wished to initiate an oral diet understanding aspiration risks. See diet for
comfort below. Verbal/written education completed with patient's caregiver and about swallowing strategies.
Recommend:
1. IDDSI Level 4 Puree, IDDSI Level 3 Moderately Thick Liquids via tsp for COMFORT understanding aspiration risks
2. Medications - non-oral preferred; otherwise crushed in puree if medically cleared to do so
3. Strategies: upright to 90 degrees, small single sips/bites, ensure patient swallows before next sip/bite, verbal cues to swallow, oral care after meals, oral care 3x day
4. Dysphagia therapy follow up for family education and to assess with advanced consistencies if/when appropriate.
[2024-02-18] MEDS: MAGNESIUM SULFATE 50 IV (13:16)
[2024-02-18 15:17] VITALS: BP 132/75
--- NOTE | 2024-02-18 16:43 | RESPNOTE ---
late entry:
called to bedside to NT suction patient per family request. 14 Fr suction kit used, minimal resistance via right nare x1 pass but yielded minimal secretions. x1 pass via left nare, minimal resistance, small amount of thin clear/scant blood tinged
secretions. patient then coughed up 2 small pieces of very thick,hard, connor/ brown/ blood tinged mucus bits, likely dislodged from nasal passages. patient resistant to additional suctioning. RN updated.
[2024-02-18] MEDS: ARICEPT PO (17:10)
[2024-02-18] MEDS: SEROQUEL PO (17:10)
[2024-02-18] MEDS: SYNTHROID PO (17:11)
[2024-02-18] MEDS: LOVENOX 40 MG SC (17:48)
[2024-02-18] MEDS: NAMENDA 10 MG PO (21:00)
[2024-02-18] MEDS: ZINC SULFATE 220 MG PO (21:00)
[2024-02-18 22:03] VITALS: BP 153/93
--- NOTE | 2024-02-18 22:05 | PTCARENOTE ---
This RN reviewed with spouse, hotel front desk clerk, and family that patient is a high risk for Aspiration. Reviewed precautions. Family verbalized understanding. Caregiver fed patient her dinner and ate roughly 40% of meal. When due for medication
administration, patient refused medications. Patient c/o pain in her back. This RN notified House LOCAL GOVERNMENT LEGISLATOR. Tylenol suppository ordered.
[2024-02-18] MEDS: TYLENOL/FEVERALL 650 MG RECTAL (22:17)
[2024-02-18 23:30] VITALS: BP 164/95
[2024-02-19] MEDS: D5/0.45%NSS with KCL 20 MEQ 1000 IV ×2 (00:31→14:37)
[2024-02-19 06:00] VITALS: BMI 25.3
[2024-02-19 08:00] VITALS: BP 161/95
[2024-02-19] MEDS: VITAMIN C PO ×3 (08:42→21:09)
[2024-02-19] MEDS: ZINC SULFATE PO ×3 (08:42→21:10)
[2024-02-19] MEDS: NAMENDA PO ×3 (08:43→21:09)
[2024-02-19] MEDS: VITAMIN D3 (cholecalciferol) PO ×3 (08:43→21:10)
[2024-02-19 12:25] VITALS: BP 155/82
--- NOTE | 2024-02-19 12:59 | CON.NEURO4 ---
Addendum entered and electronically signed by Jaime Cherry MD 02/19/24 14:39:
Studies reviewed.
I have personally examined the patient. I reviewed and agree with the RF TECHNICIAN's Note.
My addenda:
Not arousable, noninteractive. No acute distress.
Speech: Mute.
Follows no requests. No tremor. Patient has involuntary movements irregularly intermittently lasting for 0.25 seconds
Extra-ocular movements grossly intact.
Facial movements full and symmetric. Hearing intact to normal conversational volume.
Normal UE movements bilaterally.
Neck: full ROM.
Chest: no dyspnea
Heart: no JVD
Ext: (-) Clubbing, (-) Cyanosis, (-) Edema
IMPRESSIONS/RECOMMENDATIONS:
Abrupt onset of acute worsening of function
With prior diagnosis of dementia with Lewy bodies
Most likely the patient is experiencing end-of-life status with top of dementia initiated by infectious etiology
Unlikely the patient will have a meaningful outcome and has a very poor prognosis
Check blood work for additional metabolic abnormalities potentially producing worsening symptomatology
Attempt to change the patient's Levothyroid to IV therapy to ensure the patient is not under medicated for this issue
Unlikely neuroimaging will change prognosis significantly
D/W family
All questions answered.
Will continue to follow pending results.
Original Note:
Consultation - Neurology 4
-
CONSULTING PHYSICIAN: Jaime Cherry MD
REFERRING PHYSICIAN: Hospitalists/Dr. Bar
DICTATED BY: GERARD Boyd
DATE/TIME OF REQUEST: 02/19/24
DATE/TIME OF CONSULTATION: 02/19/24
Reason for Consultation: Lewey Body Dementia
History of Present Illness:
This is a 68-year-old female who has presented to the hospital with (chief complaint). Patient is currently nonverbal and this information is obtained from her at bedside and medical records. Patient's reports that she started
showing signs of dementia including hallucinations in 2014. By 2017 she was diagnosed with Lewey body dementia by Dr. Negro Galan at [facility]. Additionally in 2017 she underwent two spinal taps and was diagnosed with Lyme disease. She had an MRI brain
completed in 2016 as well that was normal. She was ambulatory and able to feed herself until 2020. Since 2020 she has required more assistance with toileting, dressing, and ADLs in general. One year ago she became bedbound requiring a mora lift and
wheelchair for ambulation. She also became a total feed and incontinent of urine/stool. She is able to provide one word verbal responses that are intermittently logical but often nonsensical. One week ago on 02/12/24 she began having liquid stools.
The following day (02/13/24) she became lethargic/difficult to arouse and her PCP recommended she come to the ER for evaluation. CT abdomen was obtained and demonstrated a fecal impaction and urine culture was positive for E. Coli. She was treated
with ceftriaxone and flagyl, and enemas for bowel impaction. Patient's reports that over the past few days she was improving, taking a couple of bites of pureed foods and thickened liquids. Last night (02/18/24) she was alert and he thought
she was improving. This morning (02/19/24) she is lethargic again, minimally responsive, and not having any oral intake. He has requested Neurology evaluation to determine if she is likely to rebound from this or if he should consider hospice care.
Patient is nonverbal and unable to answer a review of systems.
Past Medical History: Lewey body dementia with behavioral disturbance, hypothyroidism, HLD, depression, GERD
Surgical History: Sinus surgery
Family History: Reviewed and noncontributory.
Social History: Denies tobacco, alcohol, and illicit drug use.
Allergies: Anticholinergics, dopamine agonists, risperidone, chlorpromazine, haloperidol.
Home Medications: See below.
Review of Symptoms:
Per the HPI. I am unable to obtain a complete review of systems�because of patient's inability to provide history.
Physical Exam:
The patient is afebrile, abdomen is nondistended, breathing is unlabored, skin is warm and dry, no edema. Distal atrophy.
Neurologic Examination:
The patient is obtunded. Opens eyes rarely spontaneously or to pain. Verbal response is incomprehensible sounds only. She does not follow any commands. On cranial nerve assessment, pupils are 3 mm bilateral, round and reactive to light and
accommodation. SAL visual lord or EOMS, no gaze deviation. There is no facial asymmetry at rest. SAL hearing. SAL tongue palate/uvula. Moves all extremities spontaneously. SAL drift. No involuntary movement noted. Deep tendon reflexes are 1+
bilateral upper and lower extremities and Babinski is absent bilaterally. SAL sensation, DBS, and coordination.
Lab Results: See below.
Neuro Imaging: None.
Differentials for the patient's presentation include:
1. Toxic metabolic encephalopathy in the setting of UTI, likely producing acute cognitive decline in a patient with advanced Lewey body dementia.
Patient has the following risk factors for their symptoms: Lewey body dementia, UTI
Recommendations:
-Discussed progressive nature of lewey body dementia at length with patient's spouse. Reviewed that patient's dementia medications are typically sedating, and therefore not taking them for an extended period would not be the source of her lethargy.
-Consider providing levothyroxine IV while patient is unable to tolerate oral medication.
-Do not see a role for further neurological imaging at this time.
Discussed patient care with: Dr. Cherry, the patient, patient's family
Vital Signs and Labs
-
Vital Signs and Labs:
Vital Signs
Temp Pulse Resp BP Pulse Ox
99.3 F 83 22 155/82 94
02/19/24 12:25 02/19/24 12:25 02/19/24 12:25 02/19/24 12:25 02/19/24 12:25
Sodium 139 mmol/L (135-145) 02/18/24 05:43
Potassium 3.1 mmol/L (3.5-5.1) L 02/18/24 05:43
BUN 7 mg/dl (7-17) 02/18/24 05:43
Glucose 110 mg/dl (70-99) H 02/18/24 05:43
Calcium 9.8 mg/dl (8.4-10.2) 02/18/24 05:43
Medications
-
Active Medications
Generic Name Dose Route Start Last Admin
Trade Name Freq PRN Reason Stop Dose Admin
Acetaminophen 650 mg 02/14/24 00:40
Acetaminophen 325 Mg Tablet PO 03/13/24 00:39
Q4HPRN PRN
mild pain/ALBARRAN/temp> 100.4F
Ascorbic Acid 500 mg 02/14/24 00:40 02/19/24 10:18
Ascorbic Acid 500 Mg Tablet PO 03/13/24 00:39 Not Given
BID JUAN
Bisacodyl 10 mg 02/14/24 00:40 02/18/24 11:24
Bisacodyl 10 Mg Rectal Suppository RECTAL 03/13/24 00:39 10 mg
[id number] PRN Administration
constipation
Cetirizine HCl 5 mg 02/14/24 08:00 02/19/24 10:19
Cetirizine Hcl 10 Mg Tablet PO 03/13/24 07:59 Not Given
DAILY JUAN
Cholecalciferol 25 mcg 02/14/24 00:40 02/19/24 10:19
Cholecalciferol (Vitamin D3) 25 Mcg Tablet (1,000 Units) PO 03/13/24 00:39 Not Given
BID JUAN
Clopidogrel Bisulfate 75 mg 02/14/24 08:00 02/19/24 10:18
Clopidogrel 75 Mg Tablet PO 03/13/24 07:59 Not Given
DAILY JUAN
Donepezil HCl 10 mg 02/14/24 00:40 02/18/24 17:10
Donepezil Hcl 10 Mg Tablet PO 03/13/24 00:39 Not Given
QPM JUAN
Enoxaparin Sodium 40 mg 02/14/24 18:00 02/18/24 17:48
Enoxaparin Sodium 40 Mg/0.4 Ml Syringe SC 03/13/24 17:59 40 mg
QPM JUAN Administration
Potassium Chloride/Dextrose/Sod Cl 20 meq in 1,000 mls @ 70 mls/hr 02/19/24 13:00
D5/0.45%Nss With Kcl 20 Meq IV 02/20/24 17:34
[id number] JUAN
Lactobacillus/Bifidobacterium 1 cap 02/14/24 08:00 02/19/24 10:18
Lactobac/Bifidobac (Visbiome) PO 03/13/24 07:59 Not Given
DAILY JUAN
Levothyroxine Sodium 50 mcg 02/14/24 00:40 02/18/24 17:11
Levothyroxine 50 Mcg Tablet PO 03/13/24 00:39 Not Given
QPM JUAN
Memantine 10 mg 02/14/24 00:40 02/19/24 10:18
Memantine 10 Mg Tablet PO 03/13/24 00:39 Not Given
BID JUAN
Multivitamins Therapeutic 1 tablet 02/14/24 08:00 02/19/24 10:18
Multivitamin Tablet PO 03/13/24 07:59 Not Given
DAILY JUAN
Ondansetron HCl 4 mg 02/14/24 00:40
Ondansetron 4 Mg/2 Ml Vial IV 03/13/24 00:39
Q6HPRN PRN
nausea and vomiting
Pantoprazole Sodium 40 mg 02/14/24 08:00 02/19/24 10:18
Pantoprazole 40 Mg Delayed Release Tablet PO 03/13/24 07:59 Not Given
DAILY JUAN
Phenol 0 spray 02/15/24 20:15 02/15/24 22:05
Chloraseptic (1.4% Phenol) Throat Ramer PO 03/14/24 20:14 1 spray
Q2HPRN PRN Administration
cough
Polyethylene Glycol 17 grams 02/16/24 08:00 02/19/24 08:57
Polyethylene Glycol Powder 17 Grams Packet PO 03/15/24 07:59 Not Given
DAILY JUAN
Quetiapine Fumarate 25 mg 02/14/24 08:00 02/19/24 10:18
Quetiapine 25 Mg Tablet PO 03/13/24 07:59 Not Given
BID@0800,1600 JUAN
Quetiapine Fumarate 50 mg 02/14/24 00:40 02/18/24 17:10
Quetiapine 25 Mg Tablet PO 03/13/24 00:39 Not Given
QPM JUAN
Senna/Docusate Sodium 1 tablet 02/15/24 20:00 02/19/24 10:18
Docusate W/Senna (Gisela-Colace) Tablet PO 03/14/24 19:59 Not Given
BID JUAN
Sertraline HCl 200 mg 02/14/24 08:00 02/19/24 10:19
Sertraline 100 Mg Tablet PO 03/13/24 07:59 Not Given
DAILY JUAN
Sodium Chloride 0 flush 02/14/24 01:00
Sodium Chloride 0.9% (Flush) Syringe IV 03/13/24 00:59
PER PROTOCOL JUAN
Sodium Chloride 2 sprays 02/18/24 14:06
Sodium Chloride 0.65% Nasal Ramer 45 Ml Bottle NASAL 03/17/24 14:05
QIDPRN PRN
nasal congestion
Zinc Sulfate 220 mg 02/14/24 08:00 02/19/24 10:19
Zinc Sulfate 220 Mg Capsule PO 03/13/24 07:59 Not Given
BID JUAN
Home Medications
�Medication �Instructions �Recorded
Probiotic 2.5 mg PO DAILY probiotic 02/13/24
ascorbic acid (vitamin C) 500 mg 500 mg PO BID Supplement 02/13/24
tablet (Vitamin C)
biotin 2,500 mcg chewable tablet 2,500 mcg PO BID Supplement 02/13/24
cholecalciferol (vitamin D3) 25 25 mcg PO BID Supplement 02/13/24
mcg (1,000 unit) tablet (Vitamin
D3)
clopidogrel 75 mg tablet 75 mg PO DAILY Blood Clot 02/13/24
Prevention/Tx
coconut oil 4,000 mcg PO BID Supplement 02/13/24
donepezil 10 mg tablet 10 mg PO QPM dementia 02/13/24
fluticasone propionate 50 1 spray intranasal QPM PRN nasal 02/13/24
mcg/actuation nasal congestion
spray,suspension
levocetirizine 5 mg tablet 5 mg PO DAILY Allergies 02/13/24
levothyroxine 50 mcg tablet 50 mcg PO QPM hypothyroidism 02/13/24
memantine 10 mg tablet 10 mg PO BID dementia 02/13/24
ggdepaeg-egj-mucvr acid 200 1 tab PO BID Supplement 02/13/24
mcg-collagen, hydrolyzed 25 mg
chew tablet (Women's Multivitamin
with Collagen)
omeprazole 40 mg capsule,delayed 40 mg PO DAILY Gastrointestinal 02/13/24
release Issue
quetiapine 25 mg tablet 25 mg PO BID 02/13/24
depression/anxiety/Lewy Body
dementia
quetiapine 50 mg tablet 50 mg PO QPM 02/13/24
depression/anxiety/Lewy Body
dementia
sertraline 100 mg tablet 200 mg PO DAILY depression/anxiety 02/13/24
simvastatin 40 mg tablet 40 mg PO QPM High Cholesterol 02/13/24
zinc acetate 50 mg (zinc) capsule 50 mg PO BID Supplement 02/13/24
--- NOTE | 2024-02-19 13:04 | HOSPNOTE ---
Spoke with spouse today and spouse has decided patient will go home iwth [facility] and palliative care. Updated Kaur from case management. The spouse does not wish for hospice at this time. Will continue to be available to family once patient transitions
to home and hospice is wanted.
--- NOTE | 2024-02-19 13:06 | W.PN.HOSP.TC ---
Today's Communication/Plan
-
Continue to address goals of care
Neurology consult
Check labs
Assessment / Plan
Assessment / Plan
Gen-awake, NAD
HEENT-NC, AT, anicteric, clear oral mm
Neck-supple
CV-reg, no M, +S1/S2
Lungs-clear B/L
Abd-soft, NT, ND
Ext-no edema
Musculoskeletal-no cyanosis, clubbing
Skin-warm and dry
Severe constipation with fecal impaction -last BM 02/15. Has not had significant oral intake due to severe dysphagia.
- reports weeks of severe constipation followed by loose watery, nonbloody stools x 2 days -- 'runoff stools'
- CT a/p: Moderate fecal material in the rectum concerning for fecal impaction, Large hiatal hernia.
- Disimpacted in ER.
-Post disimpaction patient got an enema and Dulcolax suppository.
-GI signed off
Continue with bowel regimen. TSH normal.
Acute TME -initially felt to be due to infection, but not improving. Suspect progression of underlying dementia. I did ask neurology to stop by. very concerned about ongoing encephalopathy.
Dysphagia -likely acute on chronic. Etiology suspected to be due to dementia, currently n.p.o., unable to take oral medications. Recommend against a feeding tube given poor prognosis in the setting of dementia and high aspiration risk. Priority
at the end of life should not be nutrition, but comfort. Discussed in detail with patient's at the bedside.
Speech therapy recommends pur�ed, honey thick liquids. Very high risk of aspiration.
Nursing unable to administer any medications. I discussed with patient's at the bedside, if he wants us to continue to be aggressive then we will need to place a Dobbhoff tube to at least allow her to get her medications if not possible
nutrition. I also explained that a Dobbhoff tube is only temporary and she cannot be discharged with this in place. Unfortunately, it may also increase her risk of aspiration. She may also potentially pull it out. wants to consult with
his [id number] regarding this possibility.
E. coli UTI -completed a course of antibiotics.
Suspected aspiration pneumonitis -due to dysphagia due to dementia. Doubt pneumonia. Discontinue metronidazole. Chest x-ray from 02/15 shows small volume pleural parenchymal airspace disease of the left lung base. Not hypoxic. Not requiring
oxygen.
Lewy Body Dementia -seems hospice appropriate given suspected progression, bedbound status, progressive dysphagia, etc.
met with hospice, but currently he is not interested.
Elevated transaminases -appears to be chronic. Unclear etiology. Stop further atorvastatin.
Anxiety / Depression
CAD - stable.
Hypothyroidism - on levothyroxine.
Hyperlipidemia - simvastatin at home.
DNR
Updated at the bedside.
Anticipated Discharge: > 48 hours
Subjective/Interval History
-
Date of Service: February 19, 2024
Patient seen and examined. Looks about the same as yesterday. Not verbalizing. Not following commands.
Objective Data
-
Labs:
Laboratory Results
02/19/24
12:24
WBC Pending
Hgb Pending
Hct Pending
Plt Count Pending
Sodium Pending
Potassium Pending
Chloride Pending
Carbon Dioxide Pending
BUN Pending
Creatinine Pending
Glucose Pending
Calcium Pending
Total Bilirubin Pending
AST Pending
ALT Pending
Alkaline Phosphatase Pending
Vital Signs:
Vital Signs
Temp Pulse Resp BP Pulse Ox
99.3 F 83 22 155/82 94
02/19/24 12:25 02/19/24 12:25 02/19/24 12:25 02/19/24 12:25 02/19/24 12:25
I&O
02/18/24 02/19/24 02/20/24
06:59 06:59 06:59
Intake Total 2219 840 / 840
Balance 2219 840 / 84
Review of Systems
-
Unable to obtain full review of systems at this time due to: Dementia, Acuity and Patient Non-verbal
--- NOTE | 2024-02-19 13:47 | CM ---
Reviewed the chart notes. Order for naso-esophageal suction provided to VN Liaison [place]. CM continues to be available to patient/family and is monitoring medical plan for needs at discharge.
Plan: Discharge to home with VN services, as well as, Palliative Care.
[2024-02-19 14:45] LABS: % Basophils 0.4 % (0-2); % Immature Granulocytes 0.6 % (0-0.5); % Monocytes 8.9 % (1.7-9.3); % Neutrophils 70.1 % (42.2-75.2); Absolute Eosinophils 0.1 10^3/uL (0-0.7); Absolute Immature Granulocytes 0.1 10^3/uL (0-0.05); Absolute Lymphocytes 1.8 10^3/uL (1.2-3.4); Absolute Monocytes 0.8 10^3/uL (0.1-0.6); Absolute Neutrophils 6.6 10^3/uL (1.4-6.5); Hematocrit 38.2 % (37.0-47.0); Hemoglobin 12.8 g/dL (12.0-16.0); Mean Corp Hgb Conc. 33.5 g/dL (33.0-37.0); Mean Corpuscular Hgb 28.3 pg (27.0-31.0); Mean Corpuscular Volume 84.5 fL (81.0-99.0); Mean Platelet Volume 9.8 fL (7.4-10.4); Nucleated Red Blood Cells % 0 %; Platelet Count 231 10^3/uL (130-400); Red Blood Cell Count 4.52 10^6/uL (4.20-5.40); Red Cell Dist. Width 16.1 % (11.5-14.5); White Blood Cell Count 9.4 10^3/uL (4.8-10.8)
[2024-02-19 15:01] LABS: ALT (SGPT) 41 U/L (0-35); AST (SGOT) 54 U/L (14-36); Albumin 3.2 g/dl (3.5-5.0); Alkaline Phosphatase 86 U/L (38-126); Blood Urea Nitrogen 6 mg/dl (7-17); Calcium 9.8 mg/dl (8.4-10.2); Carbon Dioxide 25 mmol/L (22-30); Chloride 104 mmol/L (98-107); Estimated Creatinine Clearance 76 ml/min; Glucose 118 mg/dl (70-99); Magnesium 1.7 mg/dl (1.6-2.3); Potassium 3.2 mmol/L (3.5-5.1); Sodium 137 mmol/L (135-145); Total Bilirubin 0.4 mg/dl (0.2-1.3); Total Protein 5.9 g/dl (6.3-8.2); eGFR > 60.00
[2024-02-19] MEDS: SEROQUEL PO (15:09)
[2024-02-19] MEDS: ARICEPT PO (15:10)
--- NOTE | 2024-02-19 15:58 | CHAP ---
Emotional and spiritual support offered for Netta's and caregiver at bedside. Will follow as able/as needed as they make decisions and accompany her through these days.
[2024-02-19 16:00] VITALS: BP 119/80
[2024-02-19 16:32] LABS: TSH Reflex To Free T4 4.31 uIU/ml (0.47-4.68)
[2024-02-19 17:07] LABS: Folate > 20.0 ng/ml (2.76-20); Vitamin B12 952 pg/ml (239-931)
[2024-02-19] MEDS: LEVOTHROID 25 MCG IV (17:26)
[2024-02-19] MEDS: LOVENOX 40 MG SC (17:28)
[2024-02-19 23:18] VITALS: BP 155/87
[2024-02-20] MEDS: OFIRMEV 100 IV (01:26)
[2024-02-20] MEDS: D5/0.45%NSS with KCL 20 MEQ 1000 IV ×2 (04:10→18:20)
[2024-02-20 06:00] VITALS: BMI 25.1
[2024-02-20 07:45] VITALS: BP 150/97
[2024-02-20] MEDS: NAMENDA PO ×2 (08:16→20:42)
[2024-02-20 08:17] VITALS: BMI 25.1
[2024-02-20] MEDS: VITAMIN C PO ×2 (08:17→20:42)
[2024-02-20] MEDS: ZINC SULFATE PO ×2 (08:17→20:42)
[2024-02-20] MEDS: VITAMIN D3 (cholecalciferol) PO ×2 (08:17→20:42)
[2024-02-20 09:26] LABS: ALT (SGPT) 38 U/L (0-35); AST (SGOT) 55 U/L (14-36); Albumin 3.3 g/dl (3.5-5.0); Alkaline Phosphatase 85 U/L (38-126); Blood Urea Nitrogen 5 mg/dl (7-17); Calcium 9.8 mg/dl (8.4-10.2); Carbon Dioxide 25 mmol/L (22-30); Chloride 105 mmol/L (98-107); Estimated Creatinine Clearance 76 ml/min; Glucose 118 mg/dl (70-99); Magnesium 1.7 mg/dl (1.6-2.3); Potassium 3.6 mmol/L (3.5-5.1); Sodium 138 mmol/L (135-145); Total Bilirubin 0.4 mg/dl (0.2-1.3); Total Protein 6.1 g/dl (6.3-8.2); eGFR > 60.00
--- NOTE | 2024-02-20 10:29 | PTCARENOTE ---
Patient with alternating periods of drowsiness and restlessness in bed; eyes open, able to answer yes/no questions occasionally. AM PO meds held this morning due to high aspiration risk; made aware, speech asked to reassess patient when able.
Mouth care and hygiene provided by RN, tech, and acute care certified nursing assistant. Patient occasionally grimacing in bed, when asked if having pain patient responded 'a little.' MD made aware, PRN rectal tylenol ordered.
[2024-02-20 11:33] VITALS: BP 130/81
--- NOTE | 2024-02-20 11:50 | CHAP ---
Emotional and spiritual support provided. Prayer blanket given. Stories shared.
[2024-02-20] MEDS: TYLENOL/FEVERALL 650 MG RECTAL ×2 (12:20→18:23)
--- NOTE | 2024-02-20 13:55 | W.PN.HOSP.TC ---
Today's Communication/Plan
-
Discharge planning
Assessment / Plan
Assessment / Plan
Gen-awake, NAD
HEENT-NC, AT, anicteric, clear oral mm
Neck-supple
CV-reg, no M, +S1/S2
Lungs-clear B/L
Abd-soft, NT, ND
Ext-no edema
Musculoskeletal-no cyanosis, clubbing
Skin-warm and dry
Severe constipation with fecal impaction -last BM 02/15. Has not had significant oral intake due to severe dysphagia.
- reports weeks of severe constipation followed by loose watery, nonbloody stools x 2 days -- 'runoff stools'
- CT a/p: Moderate fecal material in the rectum concerning for fecal impaction, Large hiatal hernia.
- Disimpacted in ER.
-Post disimpaction patient got an enema and Dulcolax suppository.
-GI signed off
Continue with bowel regimen. TSH normal.
Acute TME -initially felt to be due to infection, but not improving. Suspect progression of underlying dementia. Appreciate neurology input. Discussed with family that she will have good days and bad days due to her underlying dementia. Natural
progression of disease discussed with overall poor prognosis.
Dysphagia -likely acute on chronic. Etiology suspected to be due to dementia, currently n.p.o., unable to take oral medications. Recommend against a feeding tube given poor prognosis in the setting of dementia and high aspiration risk. Priority
at the end of life should not be nutrition, but comfort. Discussed in detail with patient's at the bedside.
Speech therapy recommends pur�ed, honey thick liquids. Very high risk of aspiration.
Nursing unable to administer any medications.
At this point given advanced dementia and her poor overall prognosis I would hold off on artificial nutrition as it will likely only hasten her . High risk for complications including aspiration and pneumothorax.
Family now opting for home hospice. Agree with holding off on artificial nutrition. Ultimately the decision at end of life would have been Netta's to make on her own, but states that she did not make her wishes clear regarding artificial
means of nutrition at the end of life when she was of sound mind.
E. coli UTI -completed a course of antibiotics.
Suspected aspiration pneumonitis -due to dysphagia due to dementia. Doubt pneumonia. Off antibiotics. Chest x-ray from 02/15 shows small volume pleural parenchymal airspace disease of the left lung base. Not hypoxic. Not requiring oxygen.
Lewy Body Dementia -seems hospice appropriate given suspected progression, bedbound status, progressive dysphagia, etc.
Neurology concurs with recommendation for hospice.
Elevated transaminases -appears to be chronic. Unclear etiology.
Anxiety / Depression
CAD - stable.
Hypothyroidism - on levothyroxine.
Hyperlipidemia
DNR
Dispo -goal of discharge home on hospice tomorrow. Long discussion with patient's and patient's brother at the bedside and all parties agree. Case management and hospice nurse updated.
Discussion of end-of-life care constitutes high risk encounter.
Anticipated Discharge: Within 24 hours
Subjective/Interval History
-
Date of Service: February 20, 2024
Patient seen and examined. Looks brighter and more awake today. Tries to verbalize but still is incoherent.
Objective Data
-
Labs:
Laboratory Results
02/20/24
08:38
Sodium 138
Potassium 3.6
Chloride 105
Carbon Dioxide 25
BUN 5 L
Creatinine 0.4 L
Glucose 118 H
Calcium 9.8
Total Bilirubin 0.4
AST 55 H
ALT 38 H
Alkaline Phosphatase 85
Vital Signs:
Vital Signs
Temp Pulse Resp BP Pulse Ox
98 F 82 18 130/81 98
02/20/24 11:33 02/20/24 11:33 02/20/24 11:33 02/20/24 11:33 02/20/24 11:33
I&O
02/19/24 02/20/24 02/21/24
06:59 06:59 06:59
Intake Total 840 / 840
Balance 840 / 840
Review of Systems
-
Unable to obtain full review of systems at this time due to: Dementia
--- NOTE | 2024-02-20 14:56 | VNURNOTE ---
Home Health Liaison called patient's spouse earlier this am to discuss DME and VN services.
Spouse was agreeable to meet later this afternoon in person.
Home Health Liaison met with patient's spouse, brother and caregiver at 1430 to discuss [facility] nurse/therapy, visits, schedule and homebound status.
Patient's spouse Sy and patient's brother initially had questions regarding [facility] and services but also stated that they were considering Hospice.
Liaison attempted to explain the difference in care at home between VN and Hospice and was interrupted. Both Sy and brother seem to be leaning toward Hospice and when Liaison asked about clarification, patient's spouse stated 'well I think that
yes means that I just gave you that answer'.
Both spouse and brother verbalized frustration over 'poor communication' but it was difficult to get a clear answer from either during discussion.
Liaison concluded the meeting and updated CM and Relationship Specialist.
--- NOTE | 2024-02-20 15:03 | HOSPNOTE ---
Met with family again and discussed hospice care and the philosophy. Multiple questions were answered, the family still needs time to talk about hospice. I discussed no IV hydration on hospice care and told family if patient went home with VN and
palliative care the patient would most likely return to the hospital in a very short time period. All questions were answered again and I was asked to call spouse back in about an hour.
[2024-02-20 15:55] VITALS: BP 136/101
[2024-02-20] MEDS: ARICEPT PO (17:03)
[2024-02-20] MEDS: LOVENOX 40 MG SC (17:04)
[2024-02-20] MEDS: TORADOL 15 MG IV (17:04)
[2024-02-20] MEDS: LEVOTHROID 25 MCG IV (17:05)
[2024-02-20] MEDS: SEROQUEL PO (17:06)
[2024-02-20 23:43] VITALS: BP 158/92
[2024-02-21] MEDS: TORADOL 15 MG IV ×2 (00:27→07:32)
[2024-02-21 06:00] VITALS: BMI 24.6
[2024-02-21 07:30] VITALS: BP 140/93
[2024-02-21] MEDS: NAMENDA PO (07:31)
[2024-02-21] MEDS: ZINC SULFATE PO (07:32)
[2024-02-21] MEDS: VITAMIN D3 (cholecalciferol) PO (07:32)
[2024-02-21] MEDS: VITAMIN C PO (07:32)
--- NOTE | 2024-02-21 10:30 | PN.CDI ---
CDI
- -
CDI:
Physician Documentation Request
Admit Date: 02/13/24 22:55
Dear Doctor Dipika,
Patient admitted for fecal impaction.
02/17 Potassium level: 3.1
17: Potassium chloride 20 meq in 1000ML's administered
02/18 Potassium level: 3.2
18: Potassium chloride 20 meq in 1000ML's administered x2
Based on the above, could you clarify in the progress notes, the appropriate diagnosis, if significant, that supports the above abnormalities and additional evaluation, monitoring and/or treatment rendered:
Hypokalemia
Abnormal lab value insignificant
Other
Use of terms such as suspected, likely, concern for, or probable (associated with a specific diagnosis that is being evaluated, monitored, or treated as if it exists) are acceptable and can be coded in the inpatient setting, when documented at the
time of discharge.
Thank you,
Brigid Kaiser RN, BSN
CDI Specialist
Available via [place] text
Please use your independent medical judgment in providing your response.
--- NOTE | 2024-02-21 10:30 | W.PN.HOSP.TC ---
Addendum entered and electronically signed by Gato Bar DO 02/21/24 13:58:
Hypokalemia - resolved.
Original Note:
Today's Communication/Plan
-
Discharge
Assessment / Plan
Assessment / Plan
Gen-awake, NAD
HEENT-NC, AT, anicteric, clear oral mm
Neck-supple
CV-reg, no M, +S1/S2
Lungs-clear B/L
Abd-soft, NT, ND
Ext-no edema
Musculoskeletal-no cyanosis, clubbing
Skin-warm and dry
Severe constipation with fecal impaction -last BM 02/15. Has not had significant oral intake due to severe dysphagia.
- reports weeks of severe constipation followed by loose watery, nonbloody stools x 2 days -- 'runoff stools'
- CT a/p: Moderate fecal material in the rectum concerning for fecal impaction, Large hiatal hernia.
- Disimpacted in ER.
-Post disimpaction patient got an enema and Dulcolax suppository.
-GI signed off
Continue with bowel regimen. TSH normal.
Acute TME -initially felt to be due to infection, but not improving. Suspect progression of underlying dementia. Appreciate neurology input. Discussed with family that she will have good days and bad days due to her underlying dementia. Natural
progression of disease discussed with overall poor prognosis.
Dysphagia -likely acute on chronic. Etiology suspected to be due to dementia, currently n.p.o., unable to take oral medications. Recommend against a feeding tube given poor prognosis in the setting of dementia and high aspiration risk. Priority
at the end of life should not be nutrition, but comfort. Discussed in detail with patient's at the bedside.
Speech therapy recommends pur�ed, honey thick liquids. Very high risk of aspiration.
Nursing unable to administer any medications.
At this point given advanced dementia and her poor overall prognosis I would hold off on artificial nutrition as it will likely only hasten her . High risk for complications including aspiration and pneumothorax.
Family now opting for home hospice. Agree with holding off on artificial nutrition. Ultimately the decision at end of life would have been Netta's to make on her own, but states that she did not make her wishes clear regarding artificial
means of nutrition at the end of life when she was of sound mind.
E. coli UTI -completed a course of antibiotics.
Suspected aspiration pneumonitis -due to dysphagia due to dementia. Doubt pneumonia. Off antibiotics. Chest x-ray from 02/15 shows small volume pleural parenchymal airspace disease of the left lung base. Not hypoxic. Not requiring oxygen.
Lewy Body Dementia -seems hospice appropriate given suspected progression, bedbound status, progressive dysphagia, etc.
Neurology concurs with recommendation for hospice.
Elevated transaminases -appears to be chronic. Unclear etiology.
Anxiety / Depression
CAD - stable.
Hypothyroidism - on levothyroxine.
Hyperlipidemia
DNR
Dispo -goal of discharge home on hospice today. Case management aware.
35 minutes spent in discharge process.
Anticipated Discharge: Today
Subjective/Interval History
-
Date of Service: February 21, 2024
Patient seen and examined. Looks comfortable. Not verbalizing for me. Sleeping when I walked in but arousable.
Objective Data
-
Vital Signs:
Vital Signs
Temp Pulse Resp BP Pulse Ox
98.6 F 83 16 140/93 93
02/21/24 07:30 02/21/24 07:30 02/21/24 07:30 02/21/24 07:30 02/21/24 09:33
Review of Systems
-
Unable to obtain full review of systems at this time due to: Dementia and Acuity
--- NOTE | 2024-02-21 10:34 | W.DS.TRANS ---
DC Summary - Cable Television Technician
-
Discharge Instructions:
Discharge Diagnosis/Procedures Lewy body dementia, UTI, fecal impaction,
dysphagia
Diet Other diet
Additional Diets Comfort feeding with pur�ed diet, honey thick
liquids, strict aspiration precautions
Activity As tolerated
Driving Restrictions No driving
Bathing Restrictions None
Other Services Hospice
Instructions:
Stand-Alone Forms:
Changes to Home Medications: No
Discharge Medications:
DC Medications w/original date entered in [facility]
fluticasone propionate 50 mcg/actuation nasal spray,suspension 1 spray intranasal QPM PRN nasal congestion 02/13/24
levothyroxine 50 mcg tablet 50 mcg PO QPM hypothyroidism 02/13/24
memantine 10 mg tablet 10 mg PO BID dementia 02/13/24
quetiapine 25 mg tablet 25 mg PO BID depression/anxiety/Lewy Body dementia 02/13/24
quetiapine 50 mg tablet 50 mg PO QPM depression/anxiety/Lewy Body dementia 02/13/24
sertraline 100 mg tablet 200 mg PO DAILY depression/anxiety 02/13/24
bisacodyl 10 mg rectal suppository 10 mg KS [id number] PRN constipation #0 ea 02/20/24
Home Medication Changes
Pending Results: No
--- NOTE | 2024-02-21 10:40 | CM ---
Reviewed the chart notes and spoke with the patient's spouse via telephone. Discussed IMM letter. Copy placed on chart. The patient is to be discharged to home today and start on Hospice service at home.
Plan: Discharge to home on Hospice service.
Medical necessity and transport form placed on chart.
[2024-02-21 11:08] VITALS: BP 114/82
--- NOTE | 2024-02-21 14:47 | PTCARENOTE ---
Patient discharged home on hospice, transported [facility]. Patient's IV removed by this RN, changed by tech and belongings in room gathered by tech prior to transport. No family at bedside to sign discharge paperwork.
== END 2024-02-21 15:06 | disposition hospice, home (50) | DRG 177 ==
LOC: 2 NORTH 22:55
PROVIDERS: Hospitalist; Internal Medicine; Physician Assistant Medical; ADMITTING PHYSICIAN Internal Medicine; ATTENDING PHYSICIAN Hospitalist; CONSULT PHYSICIAN Internal Medicine Gastroenterology; EMERGENCY PHYSICIAN Emergency Medicine; FAMILY PHYSICIAN Family Medicine; OTHER PHYSICIAN Internal Medicine Critical Care Medicine; OTHER PHYSICIAN Psychiatry & Neurology Neurology
DX: J69.0 Pneumonitis due to inhalation of food and vomit (principal); G92.8 Other toxic encephalopathy; R53.2 Functional quadriplegia; F02.818 Dementia in other diseases classified elsewhere, unspecified severity, with other behavioral disturbance; F02.84 Dementia in other diseases classified elsewhere, unspecified severity, with anxiety; F02.83 Dementia in other diseases classified elsewhere, unspecified severity, with mood disturbance; N39.0 Urinary tract infection, site not specified; K56.41 Fecal impaction; Z74.01 Bed confinement status; E03.9 Hypothyroidism, unspecified; F32.A Depression, unspecified; K21.9 Gastro-esophageal reflux disease without esophagitis; I25.10 Atherosclerotic heart disease of native coronary artery without angina pectoris; E78.00 Pure hypercholesterolemia, unspecified; Z66 Do not resuscitate; B96.20 Unspecified Escherichia coli [E. coli] as the cause of diseases classified elsewhere; E87.6 Hypokalemia; Z11.52 Encounter for screening for COVID-19
CPT/HCPCS: 36600; 71045; 74018; 74177; 80048; 80053; 81003; 81015; 82607; 82728; 82746; 82805; 83690; 83735; 84145; 84443; 85025; 86706; 86708; 86803; 87040; 87045; 87046; 87086; 87088; 87186; 87340; 87427; 87502; 87811; 92526; 92610; 96361; 96365; 96375; 99285; Q9967